=== PATIENT | male | born 1950 | race Caucasian/White ===

== ENCOUNTER → 2021-02-19 10:31 | Outpatient (CLI) | payer OTHER, MEDICARE, SELFPAY | PROVIDERS: PCP Family Medicine; Visit Provider Nurse Practitioner | DX: Z20.822 Contact with and (suspected) exposure to COVID-19 (principal) | CPT/HCPCS: C9803; U0003; U0005 ==

== ENCOUNTER 2022-03-16 13:53 | Emergency (ER) | payer OTHER, MEDICARE, SELFPAY ==
[2022-03-16 15:32] VITALS: BP 168/68; PULSE 90; RESP 20; TEMP 36.8; O2SAT 99; BMI 24.7
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
[2022-03-16 16:44] VITALS: BP 158/89; PULSE 88; RESP 20; TEMP 36.8; O2SAT 98
== END 2022-03-16 16:40 | disposition home or self-care (01) ==
PROVIDERS: Emergency Provider Student in an Organized Health Care Education/Training Program; PCP Nurse Practitioner Family
DX: S46.912A Strain of unspecified muscle, fascia and tendon at shoulder and upper arm level, left arm, initial encounter (principal); V89.2XXA Person injured in unspecified motor-vehicle accident, traffic, initial encounter
CPT/HCPCS: 99283

== ENCOUNTER → 2022-08-29 13:21 | Outpatient (CLI) | payer MEDICARE, SELFPAY | PROVIDERS: PCP Nurse Practitioner Family; Visit Provider Nurse Practitioner Family | DX: R55 Syncope and collapse (principal); I10 Essential (primary) hypertension | CPT/HCPCS: 93306 ==

== ENCOUNTER 2023-07-27 09:43 | Day surgery (SDC) | payer MEDICARE, SELFPAY ==
[2023-07-25 12:32] VITALS: BMI 24.3
[2023-07-27] VITALS (7 sets, daily range): BP systolic 92–180; BP diastolic 50–87; PULSE 79–98; RESP 18; TEMP 36.4–36.8; O2SAT 91–98
[2023-07-27] MEDS: LACTATED RINGERS 1000ML 1,000 ML 25 ML IV (10:04)
--- NOTE | 2023-07-27 10:56 | P.PNANES_ITS ---
[facility] Disclaimer: The information contained in this section may have been updated after the patient was seen, as this information can be updated by other users. Medical History Parkinson disease Hypertension Surgical History No history of previous surgery Family History Other Family history of cancer Social History Smoking Status: Former smoker alcohol intake: never substance use type: denies use current occupational status: employed Travel in the last 8 weeks: None [facility] Anesthesia Checklist Patient Identification Patient Identification: Arm Band and Verbal (Name & ) Structural Data Admitted From: Home Planned Operative Procedure/s: Colonoscopy Consent for Planned Operative Procedure(s) Verified: Yes NPO Status Verified Time NPO: 00:00 Additional verifications Anesthesia Reactions: No Airway Assessment Mallampati Score:: Class III C-Spine Mobility Assessed: Yes TMJ Mobility Assessed: Yes Dentition: Good Dentition Neurological Assessment Level of Consciousness: Awake Hx Seizures: No Numbness or tingling in extremities: No Anesthesia Plan Anesthesia Risk discussed: Yes Anesthesia Plan: Verified ASA Class: III Anesthesia Type: MAC
--- NOTE | 2023-07-27 11:22 | HMH.SCOPE ---
Procedure: Date: 07/27/23 Patient Date of :: 1950 Procedure Performed:: Screening colonoscopy Indications:: Colon cancer screening Performing Provider:: Enrike Kennedy MD Referring Provider:: Georgiana Grissom APRN Sedation:: Propofol Procedure:: After placing the patient in the left lateral decubitus position, the colonoscopy was gently inserted into the rectum and under direct visualization advanced to the cecum which was identified by transillumination in the right lower quadrant, identification of the ileocecal valve, appendiceal orifice, and cecal strap. Color, texture, mucosa, and anatomy of the colon were carefully examined with the scope. Findings:: Anal canal: normal Rectum: normal Sigmoid colon: normal without polyps or inflammatory changes, few diverticuli noted, retained liquid stools, washing and suctioning performed Descending colon: normal without polyps or inflammatory changes, retained liquid stools, washing and suctioning performed Splenic flexure: normal Transverse colon: normal without polyps or inflammatory changes, retained liquid stools, washing and suctioning performed Hepatic flexure: normal Ascending colon: normal without polyps or inflammatory changes Cecum: normal Terminal ileum: not visualized Impression: Overall normal colonoscopy with scattered sigmoid diverticulosis Prep quality fair Recommendations:: Follow up examination in about TEN years or so, sooner if clinically indicated. Complications:: None Estimated blood obtained (mL): 0 Colonoscopy Component Colonoscopy Component Was a colonoscopy performed during today's procedure?: Yes Recommended follow up colonoscopy of at least 10 years?: Yes
== END 2023-07-27 12:36 | disposition home or self-care (01) ==
PROVIDERS: PCP Nurse Practitioner Family; Visit Provider Internal Medicine Gastroenterology
PROC: (CPT G0121; principal; 2023-07-27 11:00)
DX: Z12.11 Encounter for screening for malignant neoplasm of colon (principal); K57.30 Diverticulosis of large intestine without perforation or abscess without bleeding
CPT/HCPCS: G0121

== ENCOUNTER 2024-01-26 13:24 | Outpatient (CLI) | payer MEDICARE, SELFPAY ==
[2024-01-26 13:37] LABS: Microscopic, Urine URINE MICROSCOPIC (MICROSCOPIC)
[2024-01-26 13:54] LABS: Appearance,Urine CLEAR (Clear); Bilirubin,Urine Negative (Negative); Blood, Urine Negative (Negative); Color,Urine YELLOW (Yellow); Glucose,Urine (UA) Negative (Negative); Ketones,Urine TRACE (Negative); Leukocyte Esterase,Urine Negative (Negative); Nitrate,Urine Negative (Negative); Protein,Urine Negative (Negative); Specific Gravity, Urine >= 1.030 (1.005-1.030); Urobilinogen,Urine 0.2 EU/dl (0.2)
[2024-01-26 14:08] LABS: Basophils # 0.1 K/mm3 (0-0.2); Basophils % 0.6 % (0.1-2.0); Eosinophils # 0.1 K/mm3 (0.0-0.4); Eosinophils % 0.9 % (0.1-12.0); Hematocrit 40.7 % (42.0-52.0); Lymphocytes # 1.1 K/mm3 (0.7-4.5); Lymphocytes % 14.7 % (10-50); Mean Corpuscular HGB Conc 34.5 g/dL (31.8-35.4); Mean Corpuscular Hemoglobin 31.2 pg (27.0-31.2); Mean Corpuscular Volume 90.2 fl (80-94); Mean Platelet Volume 7.7 fl (7.4-10.4); Monocytes # 0.6 K/mm3 (0.1-1.0); Monocytes % 8.4 % (1.7-9.3); Neutrophils # 5.4 K/mm3 (1.8-7.8); Neutrophils % 75.4 % (37.0-80.0); Platelet Count 221 K/mm3 (142-424); Red Blood Count 4.51 M/mm3 (4.60-6.20); Red Cell Distribution Width 13.7 % (11.5-17.5); White Blood Count 7.2 K/mm3 (4.8-10.8)
[2024-01-26 14:27] LABS: Alanine Aminotransferase 11 U/L (12-78); Albumin Level 3.9 g/dl (3.5-5.0); Albumin/Globulin Ratio 1.8 (1.1-1.8); Alkaline Phosphatase 72 U/L (38-126); Anion Gap 7.8 mEq/L (5-15); Aspartate Amino Transferase 26 U/L (17-59); Bilirubin,Total 0.7 mg/dl (0.2-1.3); Blood Urea Nitrogen 19 mg/dl (9-20); Calcium 8.9 mg/dl (8.4-10.2); Carbon Dioxide 28 mmol/L (22.0-30.0); Chloride 107 mmol/L (98-107); Estimated Glomerular Filt Rate 83 ml/min (>60); GFR (African American) 101 ML/MIN (>60); Globulin 2.2 g/dL (1.3-3.2); Glucose 123 mg/dl (74-100); Potassium 3.8 mmoL/L (3.5-5.1); Sodium 139 mmol/L (136-145); Total Protein,Serum 6.1 g/dl (6.3-8.2)
[2024-01-26 14:43] LABS: Bacteria,Urine 2+ /lpf; Mucus,Urine 3+ /lpf; Squamous Epithelial Cell,Urine Occasional #/hpf (0-5)
[2024-01-26 14:58] LABS: Thyroid Stimulating Hormone 1.79 uIU/mL (0.465-4.68)
== END 2024-01-26 23:59 | disposition home or self-care (01) ==
LOC: LAB 13:26
PROVIDERS: PCP Internal Medicine Adolescent Medicine; Visit Provider Nurse Practitioner Family
DX: R53.1 Weakness (principal); R41.0 Disorientation, unspecified
CPT/HCPCS: 36415; 80053; 81001; 84443; 85025; 87086

== ENCOUNTER 2024-05-31 13:00 | Outpatient (RCR) | payer MEDICARE, SELFPAY | END 2024-05-31 23:59 | disposition home or self-care (01) | LOC: ST 13:00 | PROVIDERS: PCP Internal Medicine Adolescent Medicine; Visit Provider Physician Assistant | DX: G20.A1 Parkinson's disease without dyskinesia, without mention of fluctuations (principal); R41.89 Other symptoms and signs involving cognitive functions and awareness; R41.0 Disorientation, unspecified | CPT/HCPCS: 92507; 92524 ==

== ENCOUNTER 2024-06-17 08:31 | Outpatient (RCR) | payer MEDICARE, SELFPAY | END 2024-06-17 23:59 | disposition home or self-care (01) | LOC: ST 08:31 | PROVIDERS: PCP Internal Medicine Adolescent Medicine; Visit Provider Physician Assistant | DX: R49.8 Other voice and resonance disorders (principal); R41.89 Other symptoms and signs involving cognitive functions and awareness; G20.A1 Parkinson's disease without dyskinesia, without mention of fluctuations | CPT/HCPCS: 92507 ==

== ENCOUNTER 2024-10-22 12:26 | Emergency (ER) | payer MEDICARE, SELFPAY ==
[2024-10-22] VITALS (8 sets, daily range): BP systolic 120–151; BP diastolic 61–78; PULSE 89–99; RESP 16–18; TEMP 36.6–37.2; O2SAT 95–99; BMI 19.3
--- OUTSIDE RECORDS SUMMARY | 2024-10-22 13:56 | XMS_ITS | Encounter Summary ---
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 Role Phone Carlos Evans MD Primary Care Provider + [phone] Carlos Evans MD Primary Care Provider + [phone] Carlos Evans MD Unavailable [phone] Larry Watkins MD Unavailable [phone] Reason for Visit * Reason Comments Med Refill Encounter Details Date Type Department Care Team (Late st Contact Info) Description 06/01/2024 Refill [place] [facility] [address] [place] [address] Marnie Ferreira, PA [address] [place] [address] Social History Tobacco Use Types Packs/Day Years Used Date Smoking Tobacco: Former Cigarettes 1 12 1 958 - 1969 Smokeless Tobacco: Never Alcohol Use Standard Drinks/Week Comments Yes 0 (1 standard drink = 0.6 oz pur e alcohol) PHQ-2 Answer Date Recorded Patient Health Questionnaire-2 Score 0 03/25/2024 PHQ-9 Answer Date Recorded Patient Health Questionnaire-9 Score 0 03/25/2024 Sex and Gender Information Value Date Recorded Sex Assigned at Not on file Legal Sex Male 7:50 PM EDT Gender Identity Not on file Sexual Orientation Not on file documented as of this encounter Miscellaneous Notes * Telephone Encounter - Marnie Ferreira PA - 06/03/2024 9:34 AM EST sent documented in this encounter Plan of Treatment Not on file documented as of this encounter Visit Diagnoses Not on filedocumented in this encounter Additional Health Concerns Infection Onset Date Last Indicated Resolved Time COVID-19 Rule-Out 07/28/2024 07/28/2024 07/28/2024 2:04 AM EDT Assessment Noted Time PHQ-9 Depression Total Score: 0 03/25/20 2:15 PM EST A fall risk assessment has been complete d for the patient 03/25/2024 2:15 PM EST A Body Mass Index follow-up plan has been documented for the patient 03/25/2024 3:35 PM EST documented as of this encounter Care Teams Cloth Cutting Machine Operator Relationship Specialty Start Date End Date Carlos Evans MD [address] [place] [id number] PCP - General Internal Medicine 08/08/22 07/26/24 Carlos Evans MD [address] [place] [id number] PCP - General Internal Medicine 07/27/24 Carlos Evans MD [address] [place] [id number] Internal Medicine 07/27/24 Larry Watkins MD [address] [place] [address] Consulting Physician Neurology 2/7/22 documented as of this encounter
--- OUTSIDE RECORDS SUMMARY | 2024-10-22 13:56 | XMS_ITS | Clinical Summary ---
Author Organization [facility] Address [address] [place] [id number] Care Team Providers Care Head Of Geography Name Role Phone Carlos Evans MD Primary Care Provider [phone] Carlos Evans MD Unavailable [phone] Larry Watkins MD Unavailable [phone] Allergies No known active allergies Medications atorvastatin (Lipitor) 20 MG tablet Take 1 tablet (20 mg) by mouth daily. 05/06/2021 Active amLODIPine (Norvasc) 2.5 MG tablet Take 1 tablet (2.5 mg) by mouth daily. 02/28/2023 Active Pimavanserin Tartrate (Nuplazid) 34 MG capsule Take 1 capsule (34 mg) by mouth 1 (one) time each day. 90 capsule 3 03/25/2024 5 Active carbidopa-levod opa (Sinemet) 25-100 MG tablet Take 0.5 tablets by mouth 3 (three) times a day. 135 tablet 3 03/26/2024 5 Active QUEtiapine (SEROquel) 25 MG tablet Take 4 tablets (100 mg) by mouth nightly. 360 tablet 3 06/24/2024 6 Active clonazePAM (KlonoPIN) 1 MG tablet Take 1 tablet by mouth nightly. 30 tablet 07/17/2024 Active carbidopa-levod opa CR (Sinemet CR) 50-200 MG ER tablet Take 1 tablet by mouth in the morning and 1 tablet in the evening. Do not crush or chew. 180 tablet 3 07/17/2024 Active Encounters Date Type Department Care Team Description 07/27/2024 7:26 PM EDT - 07/28/2024 4:15 AM EDT Emergency [facility] [address] [place] [address] Ryanne Dacosta, Amrit Arroyo MD Weakness (Primary Dx) Discharge Disposition: Another Health Care Institution Not Defined 07/27/2024 Travel from Last 3 Months Family History Medical History Relation Name Comments Cancer Father Relation Name Status Comments Father Social History Tobacco Use Types Packs/Day Years Used Date Smoking Tobacco: Former Cigarettes 1 12 958 - 1969 Smokeless Tobacco: Never Tobacco Cessation:Counseling Given: Not Answered Alcohol Use Standard Drinks/Week Comments Yes 0 [...] on file Sexual Orientation Not on file Last Filed Vital Signs Vital Sign Reading Time Taken Comments Blood Pressure 121/57 07/28/2024 3:30 AM EDT Pulse 70 07/28/2024 3:30 AM EDT Temperature 36.4 C (97.6 F) 07/28/2024 3:30 AM EDT Respiratory Rate 16 07/28/2024 3:30 AM EDT Oxygen Saturation 98% 07/28/2024 3:30 AM EDT Inhaled Oxygen Concentration - - Weight 54.2 kg (119 lb 7.8 oz) 07/27/2024 8:05 P M EDT Height 177.8 cm (5' 10 ) 06/05/2024 9:25 AM EST Body Mass Index 17.14 06/05/2024 9:25 AM EST Plan of Treatment Health Maintenance Due Date Last Done Comments [facility]-Hepatitis C Screening 1950 [facility]-Medicare Annual Wellness (AWV) 1950 [facility]-/Child/Adol SDOH Screenings 1950 [facility]- SDOH Screenings 1970 [facility]-Adult SDOH Screenings 1970 CT Colonography 1997 Colonoscopy 1997 FIT-DNA 1997 FIT 1997 FOBT 1997 Sigmoidoscopy 1997 [facility]-Colorectal Cancer Screening 1997 [facility]-Zoster Vaccines (1 of 2) 2002 [facility]-Abdominal Aortic Aneurysm (AAA) Screening 2017 [id number] Vaccine (2 - season) 2023 07/11/2020 [facility]-Influenza Vaccine (#1) 12/09/202404/25, 01/30/2023, 01/23/2018, Additional history exists [facility]-Depression Screening 03/25/2025 03/25/2024, 03/10 [facility]-Pneumococcal Vaccine: 50+ Years (2 of 2 - PPSV23) 04/25/2025 04/25/2024 [facility]-DTaP,Tdap,and Td Vaccines (2 - Td or Tdap) 08/04/2026 08/04/2016 [facility]-RSV Vaccine: 60+ Years or (1 - 1-dose 75+ series) 09/23/2027 HPV Vaccines Aged Out No longer eligi ble based on patient's age to complete this topic [facility]-HIB Vaccines Aged Out No longer e ligible based on patient's age to complete this topic [facility]-Hepatitis A Vaccines Aged Out No longer eligible based on patient's age to complete this topic [facility]-IPV Vaccines Aged Out No longer e ligible based on patient's age to complete this topic [facility]-Rotavirus Vaccines Aged Out No lo nger eligible based on patient's age to complete this topic Procedures Procedure Name Priority Date/Time Associated Diagnosis Comments SARS-COV-2, FLU A, FLU B, AND RSV - RAPID STAT 07/28/2024 12:41 AM EDT BENZODIAZEPINE, URINE, QUANTITATIVE STAT 07/27/2024 9:39 PM EDT URINALYSIS MICROSCOPIC FOR UA REFLEX STAT 07/27/2024 9:39 PM EDT URINALYSIS WITH REFLEX MICROSCOPIC STAT 07/27/2024 9:39 PM EDT DRUG ABUSE SCREEN, URINE STAT 07/27/2024 9:39 PM EDT EXTRA TUBE GOLD TOP Routine 07/27/2024 8 :07 PM EDT EXTRA TUBE GOLD TOP Routine 07/27/2024 8 :07 PM EDT EXTRA TUBE LAVENDER TOP Routine 07/27/2024 8:07 PM EDT EXTRA TUBE LAVENDER TOP Routine 07/27/2024 8:07 PM EDT EXTRA TUBES Routine 07/27/2024 8:[address] BONY PELVIS STAT 07/27/2024 8:[address] LUMBAR SPINE WO IV CONTRAST STAT 07/27/2024 8:[address] THORACIC SPINE WO IV CONTRAST STAT 07/27/2024 8:[address] CERVICAL SPINE WO IV CONTRAST STAT 07/27/2024 8:[address] ANGIO ABDOMEN PELVIS STAT 07/27/2024 8:[address] ANGIO CHEST STAT 07/27/2024 8:[address] FACE WO IV CONTRAST STAT 8:[address] ANGIO NECK STAT 07/27/2024 8:[address] HEAD WO IV CONTRAST STAT 8:[address] ANGIO HEAD STAT 07/27/2024 8:00 PM EDT TYPE AND SCREEN STAT 07/27/2024 7:59 PM EDT TEG GLOBAL HEMOSTASIS WITH LYSIS STAT 07/27/2024 7:59 PM EDT ETHYL ALCOHOL PLASMA STAT 07/27/2024 7:59 PM EDT APTT STAT 07/27/2024 7:59 PM EDT PROTHROMBIN TIME(PT) / INR STAT 07/27/2024 7:59 PM EDT CBC W/O DIFFERENTIAL STAT 07/27/2024 7:59 PM EDT COMPREHENSIVE METABOLIC PANEL, PLASMA STAT 07/27/2024 7:59 PM EDT TRAUMA SHOCK PANEL BLOOD GAS STAT 07/27/2024 7:59 PM EDT XR PELVIS 1 OR 2 VIEWS STAT 7:44 PM EDT XR CHEST 1 VIEW STAT 07/27/2024 7:43 PM EDT POCT GLUCOSE METER UNSOLICITED RESULTS Routine 07/27/2024 7:40 PM EDT OXYGEN THERAPY STAT 07/27/2024 7:26 PM EDT OXYGEN THERAPY STAT 07/27/2024 7:26 PM EDT from Last 3 Months Results * SARS-CoV-2, Flu A, Flu B, and RSV - Rapid (07/28/2024 12:41 AM EDT) [facility] SARS CoV-2/COVID-19 RNA PCR Result Not Detected Not Detected 07/28/2024 2:04 AM EDT [facility] Influenza A Virus PCR Result Not Detected Not Detected 07/28/2024 2:04 AM EDT [facility] Influenza B Virus PCR Result Not Detected Not Detected 07/28/2024 2:04 AM EDT [facility] Respiratory Syncytial Virus (RSV) PCR Result Not Detected Not Detected 07/28/2024 2:04 AM EDT [facility] Swab Nasopharyngeal structure / Unknown Non-blood Collection / Unknown 07/28/2024 12:41 AM EDT 07/28/2024 1:14 AM EDT Narrative [facility] - 07/28/2024 2:04 AM EDT This test is FDA approved for use with nasopharyngeal specimens in Viral Transport Media (VTM). This test is used for clinical purposes. It should not be regarded as investigational or for research. This laboratory is certified under the Clinical Laboratory improvement Amendments of 1988 (CLIA-88 as qualified to perform high complexity clinical laboratory testing. This test was performed on the Xpert Xpress SARS CoV-2 Plus assay test, a PCR- based method. Negative results should be considered presumptive and do not preclude current or future infection obtained through community transmission or other exposures. Negative results must be considered in the context of an individual's recent exposures, history, presence of clinical signs and symptoms consistent with COVID-19. Amrit Knight MD LAB MICROBIOLOGY - GENERAL OR DERABLES Final Result Performing Organization Address [facility] Co de Phone Number [facility] [address] [place] [address] * Urinalysis Microscopic Examination (07/27/2024 9:39 PM EDT) Urine Urine specimen obtained by clean catch procedure / Unknown Non-blood Collection / Unknown 07/27/2024 9:39 PM EDT 07/27/2024 9:40 PM EDT Ryanne Dacosta DO LAB URINE ORDERABLES Final Re sult Performing Organization Address [facility]/ZIP Co de Phone Number [facility] [address] [place] [address] * Drug Abuse Screen, Urine (07/27/2024 9:39 PM EDT) Amphetamine Screen Urine Negative Cutoff: 500 ng/mL 07/27/2024 10:16 PM EDT [facility] Benzodiazepines Screen Urine Presumptive positive. Confirmation by LC-MS/MS to follow. Cutoff: 200 ng/mL 07/27/2024 10:16 PM EDT [facility] Cannabinoid Screen Urine Negative Cutoff: 50 ng/mL 07/27/2024 10:16 PM EDT [facility] Cocaine Screen Urine Negative Cutoff: 300 ng/mL 07/27/2024 10:16 PM EDT [facility] Barbiturate Screen Urine Negative Cutoff: 200 ng/mL 07/27/2024 10:16 PM EDT [facility] Opiate Screen Urine Negative Cutoff: 300 ng/mL 07/27/2024 10:16 PM EDT [facility] Methadone Screen Urine Negative Cutoff: 300 ng/mL 07/27/2024 10:16 PM EDT [facility] Buprenorphine Screen Urine Negative Cutoff: 10 ng/mL 07/27/2024 10:16 PM EDT [facility] Fentanyl Screen Urine Negative Cutoff: 1 ng/mL 07/27/2024 10:16 PM EDT [facility] Oxycodone Screen Urine Negative Cutoff: 100 ng/mL 07/27/2024 10:16 PM EDT [facility] Urine Urine specimen obtained by clean catch procedure / Unknown Non-blood Collection / Unknown 07/27/2024 9:39 PM EDT 07/27/2024 9:40 PM EDT us Ryanne Dacosta DO LAB URINE ORDERABLES Final Re sult [facility] [address] [place] [address] * (ABNORMAL) Benzodiazepine Confirm Urine (07/27/2024 9:39 PM EDT) [facility] [place] Alprazolam <20 <20 ng/mL 07/30 6:11 AM EDT [facility] Alpha [place] Midazolam <20 <20 ng/mL 2024 6:11 AM EDT [facility] [place] Triazolam <20 <20 ng/mL 2024 6:11 AM EDT [facility] Alprazolam <10 <10 ng/mL 07/30/2024 6:11 AM EDT [facility] Aminoclonazepam 817(H) <20 ng/mL 6:11 AM EDT [facility] Clonazepam <10 <10 ng/mL 07/30/2024 6:11 AM EDT [facility] Diazepam <10 <10 ng/mL 07/30/2024 6:11 AM EDT [facility] Lorazepam <20 <20 ng/mL 07/30/2024 6:11 AM EDT [facility] Lorazepam Glucuronide <50 <50 ng/mL 07/30/2024 6:11 AM EDT [facility] Midazolam 07/30/2024 6:11 AM EDT [facility] Nordiazepam <20 <20 ng/mL 07/30/2024 6:11 AM EDT [facility] Oxazepam <20 <20 ng/mL 07/30/2024 6:11 AM EDT [facility] Oxazepam Glucuronide <50 <50 ng/mL 07/30/2024 6:11 AM EDT [facility] Temazepam <20 <20 ng/mL 07/30/2024 6:11 AM EDT [facility] Temazepam Glucuronide <50 <50 ng/mL 07/30/2024 6:11 AM EDT [facility] Triazolam 07/30/2024 6:11 AM EDT [facility] Urine Urine specimen obtained by clean catch procedure / Unknown Non-blood Collection / Unknown 07/27/2024 9:39 PM EDT 07/27/2024 9:40 PM EDT Narrative [facility] - 07/30/2024 6:11 AM EDT Drug analysis is confirmed by LC-MS/MS (LC Tandem Mass Spectrometry) on Urine specimens. This test was developed and its performance characteristics determined by [facility]. It has not been cleared or approved by the FDA. The laboratory is regulated under CLIA as qualified to perform high-complexity testing. This test is used for clinical purposes. Testing is performed at the [facility], [facility]. us Ryanne Dacosta DO LAB URINE ORDERABLES Final Re sult [facility] [address] [place] [address] * (ABNORMAL) Urinalysis with reflex microscopic (Culture NOT Included) (07/27/2024 9:39 PM EDT) Color, Urine Yellow LAB URINALYSIS - AUTOMATED METHOD 07/27/2024 10:18 PM EDT [facility] Clarity, Urine Clear LAB URINALYSIS - AUTOMATED METHOD 07/27/2024 10:18 PM EDT [facility] Spec [place], Urine >1.030(H) 1.005 - 1.030 LAB URINALYSIS - AUTOMATED METHOD 07/27/2024 10:18 PM EDT [facility] pH, Urine 6.0 5.0 - 8.0 LAB URINALYSIS - AUTOMATED METHOD 07/27/2024 10:18 PM EDT [facility] Protein, Urine 30(A) Negative mg/dL LAB URINALYSIS - AUTOMATED METHOD 07/27/2024 10:18 PM EDT [facility] Glucose, Urine Negative Negative mg/dL LAB URINALYSIS - AUTOMATED METHOD 07/27/2024 10:18 PM EDT [facility] Ketones, Urine 15(A) Negative mg/dL LAB URINALYSIS - AUTOMATED METHOD 07/27/2024 10:18 PM EDT [facility] Blood, Urine Large(A) Negative LAB URINALYSIS - AUTOMATED METHOD 07/27/2024 10:18 PM EDT [facility] Bilirubin, Urine Negative Negative LAB URINALYSIS - AUTOMATED METHOD 07/27/2024 10:18 PM EDT [facility] Urobilinogen, Urine 1.0 0.2 to 1.0 mg/dL LAB URINALYSIS - AUTOMATED METHOD 07/27/2024 10:18 PM EDT [facility] Leukocytes, Urine Negative Negative LAB URINALYSIS - AUTOMATED METHOD 07/27/2024 10:18 PM EDT [facility] Nitrite, Urine Negative Negative LAB URINALYSIS - AUTOMATED METHOD 07/27/2024 10:18 PM EDT [facility] RBC, Urine >50(A) 0 to 3 /HPF LAB URINALYSIS - AUTOMATED METHOD 07/27/2024 10:18 PM EDT [facility] Comment:This result was prev iously suppressed from the chart. WBC, Urine 0 - 5 0 to 5 /HPF LAB URINALYSIS - AUTOMATED METHOD 07/27/2024 10:18 PM EDT [facility] Comment:This result was prev iously suppressed from the chart. Squamous Epithelial Cells 0 - 2 0 to 5 /HPF LAB URINALYSIS - AUTOMATED METHOD 07/27/2024 10:18 PM EDT [facility] Comment:This result was prev iously suppressed from the chart. Hyaline Casts >20(A) 0 to 5 /LPF LAB URINALYSIS - AUTOMATED METHOD 07/27/2024 10:18 PM EDT [facility] Comment:This result was prev iously suppressed from the chart. Bacteria, Urine Negative Negative LAB URINALYSIS - AUTOMATED METHOD 07/27/2024 10:18 PM EDT [facility] Comment:This result was prev iously suppressed from the chart. Urine Urine specimen obtained by clean catch procedure / Unknown Non-blood Collection / Unknown 07/27/2024 9:39 PM EDT 07/27/2024 9:40 PM EDT [employer] LAB URINE ORDERABLES Final Re sult Performing Organization Address [facility]/ZIP Co de Phone Number [facility] [address] [place] [address] * [facility] (07/27/2024 8:07 PM EDT) Only the most recent of2 resultswithin the time period is included. Extra Hold for add-ons 07/27/2024 11:01 PM EDT [facility] Comment:Auto resulted. Blood Venous blood specimen / Unknown 07/27/2024 8:07 PM EDT 07/27/2024 8:07 PM EDT [employer] LAB BLOOD ORDERABLES Final Re sult Performing Organization Address City/[facility]/ZIP Co de Phone Number [facility] [address] [place] [address] * [employer] (07/27/2024 8:07 PM EDT) Only the most recent of2 resultswithin the time period is included. Extra Hold for add-ons 07/27/2024 11:01 PM EDT [facility] Comment:Auto resulted. Blood Venous blood specimen / Unknown 07/27/2024 8:07 PM EDT 07/27/2024 8:07 PM EDT us Ryanne Dacosta DO LAB BLOOD ORDERABLES Final Re sult [facility] [address] [place] [address] * CT Bony Pelvis (07/27/2024 8:00 PM EDT) Anatomical Region Laterality Modality Pelvis Computed Tomogra phy Impressions 07/27/2024 8:42 PM EDT 1. Vascular structures are unremarkable. 2. No acute findings in the chest, abdomen or pelvis. 3. No pelvic fracture. 4. No acute fracture or malalignment of the cervical, thoracic and lumbar spine. CRITICAL RESULT: No. COMMUNICATION: Per this written report. Drafted by Yen Silverio MD on 07/27/2024 8:23 PM Final report signed by Yen Silverio MD on 07/27/2024 8:42 PM Narrative 07/27/2024 8:42 PM EDT CLINICAL INDICATION: poly trauma CLINICAL INDICATION: poly trauma TECHNIQUE: Imaging of the chest abdomen and pelvis was performed, from chest through pubic symphysis, using spiral technique, following administration of IV contrast, Omnipaque 350, 100 mL according to the CTA Abdomen/Pelvis protocol. Reformatted images in the coronal, sagittal, and oblique planes were generated from the axial data set to facilitate diagnostic accuracy. In addition, 3D images were created and reviewed. Imaging of the entire cervical, thoracic, and lumbar spine was performed, using spiral technique, without contrast administration. Reformatted images in the coronal and sagittal planes were generated from the axial data set to facilitate diagnostic accuracy and/or surgical planning. Images of the bony pelvis were reconstructed from CT angiogram abdomen and pelvis. Reformatted images in the coronal and sagittal planes were generated from the axial data set to facilitate diagnostic accuracy. Total DLP (Dose-Length Product): 4369.36 mGy.cm (accession [id number]), 4369.36 mGy.cm (accession [id number]), 4369.36 mGy.cm (accession [id number]), 4369.36 mGy.cm (accession [id number]), 4369.36 mGy.cm (accession [id number]), 4369.36 mGy.cm (accession [id number]). Please note: The reported value represents the total of one or more individual components during the CT acquisition on this date and at this time, and as such, the same value may appear in more than one CT report depending on the interpreting/reporting physicians. COMPARISON: None. FINDINGS: CTA Chest: Aorta/Vessels: No acute traumatic aortic injury. No periaortic hematoma. Pleural/Pericardial Space: No pneumothorax. No pleural effusions. No pericardial effusion. Lymph Nodes: No lymphadenopathy within the chest. Lungs: Except for minimal dependent atelectasis, the lungs are clear. Mediastinum: Otherwise unremarkable. Chest Wall: No chest wall hematoma or contusion. Bones: No acute fracture within the chest. CTA Abdomen : Vessels: The abdominal aorta and its major branches are unremarkable. Lung Bases: The lung bases are clear. Liver/Gallbladder/Biliary System: The liver demonstrates homogeneous enhancement. Normal Gallbladder. No intra- or extra-hepatic biliary ductal dilatation. Spleen: The spleen enhances homogeneously. Pancreas: The pancreas enhances homogeneously. Adrenals: The adrenals are morphologically unremarkable. Kidneys: The kidneys demonstrate symmetric nephrogram and excretion. No renal or ureteral calculi. No hydronephrosis. Bowel/Mesentery: The small bowel loops are not dilated. The large bowel loops are not dilated. The appendix is visualized and normal. Lymph Nodes: No lymphadenopathy within the abdomen or pelvis. Fluid Survey: No free fluid in the abdomen. No free fluid in the pelvis. Pelvis: The pelvic viscera are unremarkable. Body Wall: Normal. Bones: No acute fracture within the abdomen or pelvis. Cervical Spine: Vertebrae: No acute fracture. Multilevel degenerative changes pronounced at C4- C5 C5-C6. Disc osteophyte complex at C5-C6 without significant canal stenosis. The odontoid and atlantoaxial joints are intact. Prevertebral soft tissues unremarkable. Alignment: Normal spinal alignment. Paraspinal Soft Tissues: No paraspinal hematoma. Lung Apices: No pneumothorax at the lung apices. Thoracic Spine: Vertebrae: No acute fracture. Alignment: Normal spinal alignment. Paraspinal Soft Tissues: No paraspinal hematoma. Lumbar Spine: Vertebrae: No acute fracture. Grade 1 anterolisthesis L4-L5. Alignment: Normal spinal alignment. Paraspinal Soft Tissues: No paraspinal hematoma. Procedure Note Yen Silverio MD - 07/27/2024 CLINICAL INDICATION: poly trauma CLINICAL INDICATION: poly trauma TECHNIQUE: Imaging of the chest abdomen and pelvis was performed, from chest throughpubic symphysis, using spiral technique, following administration of IVcontrast, Omnipaque 350, 100 mL according to the CTA Abdomen/Pelvisprotocol. Reformatted images in the coronal, sagittal, and oblique planeswere generated from the axial data set to facilitate diagnostic accuracy.In addition, 3D images were created and reviewed. Imaging of the entire cervical, thoracic, and lumbar spine was performed,using spiral technique, without contrast administration. Reformattedimages in the coronal and sagittal planes were generated from the axialdata set to facilitate diagnostic accuracy and/or surgical planning. Images of the bony pelvis were reconstructed from CT angiogram abdomen andpelvis. Reformatted images in the coronal and sagittal planes weregenerated from the axial data set to facilitate diagnostic accuracy. Total DLP (Dose-Length Product): 4369.36 mGy.cm (accession [id number]),4369.36 mGy.cm (accession [id number]), 4369.36 mGy.cm (accession [id number]),4369.36 mGy.cm (accession [id number]), 4369.36 mGy.cm (accession [id number]),4369.36 mGy.cm (accession [id number]). Please note: The reported valuerepresents the total of one or more individual components during the CTacquisition on this date and at this time, and as such, the same value mayappear in more than one CT report depending on the interpreting/reportingphysicians. COMPARISON: None. FINDINGS: CTA Chest: Aorta/Vessels: No acute traumatic aortic injury. No periaortic hematoma. Pleural/Pericardial Space: No pneumothorax. No pleural effusions. Nopericardial effusion. Lymph Nodes: No lymphadenopathy within the chest. Lungs: Except for minimal dependent atelectasis, the lungs are clear. Mediastinum: Otherwise unremarkable. Chest Wall: No chest wall hematoma or contusion. Bones: No acute fracture within the chest. CTA Abdomen : Vessels: The abdominal aorta and its major branches are unremarkable. Lung Bases: The lung bases are clear. Liver/Gallbladder/Biliary System: The liver demonstrates homogeneousenhancement. Normal Gallbladder. No intra- or extra-hepatic biliary ductaldilatation. Spleen: The spleen enhances homogeneously. Pancreas: The pancreas enhances homogeneously. Adrenals: The adrenals are morphologically unremarkable. Kidneys: The kidneys demonstrate symmetric nephrogram and excretion. Norenal or ureteral calculi. No hydronephrosis. Bowel/Mesentery: The small bowel loops are not dilated. The large bowelloops are not dilated. The appendix is visualized and normal. Lymph Nodes: No lymphadenopathy within the abdomen or pelvis. Fluid Survey: No free fluid in the abdomen. No free fluid in the pelvis. Pelvis: The pelvic viscera are unremarkable. Body Wall: Normal. Bones: No acute fracture within the abdomen or pelvis. Cervical Spine: Vertebrae: No acute fracture. Multilevel degenerative changes pronouncedat C4-C5 C5-C6. Disc osteophyte complex at C5-C6 without significant canalstenosis. The odontoid and atlantoaxial joints are intact. Prevertebralsoft tissues unremarkable. Alignment: Normal spinal alignment. Paraspinal Soft Tissues: No paraspinal hematoma. Lung Apices: No pneumothorax at the lung apices. Thoracic Spine: Vertebrae: No acute fracture. Alignment: Normal spinal alignment. Paraspinal Soft Tissues: No paraspinal hematoma. Lumbar Spine: Vertebrae: No acute fracture. Grade 1 anterolisthesis L4-L5. Alignment: Normal spinal alignment. Paraspinal Soft Tissues: No paraspinal hematoma. IMPRESSION: 1. Vascular structures are unremarkable. 2. No acute findings in the chest, abdomen or pelvis. 3. No pelvic fracture. 4. No acute fracture or malalignment of the cervical, thoracic and lumbarspine. CRITICAL RESULT: No. COMMUNICATION: Per this written report. Drafted by Yen Silverio MD on 07/27/2024 8:23 PM Final report signed by Yen Silverio MD on 07/27/2024 8:42 PM us Maggie Smith MD IMG CT PROCEDURES Final R esult * CT Angio Abdomen Pelvis (07/27/2024 8:00 PM EDT) Anatomical Region Laterality Modality Abdomen, Pelvis Computed Tomogra phy Impressions 07/27/2024 8:42 PM EDT 1. Vascular structures are unremarkable. 2. No acute findings in the chest, abdomen or pelvis. 3. No pelvic fracture. 4. No acute fracture or malalignment of the cervical, thoracic and lumbar spine. CRITICAL RESULT: No. COMMUNICATION: Per this written report. Drafted by Yen Silverio MD on 07/27/2024 8:23 PM Final report signed by Yen Silverio MD on 07/27/2024 8:42 PM Narrative 07/27/2024 8:42 PM EDT CLINICAL INDICATION: poly trauma CLINICAL INDICATION: poly trauma TECHNIQUE: Imaging of the chest abdomen and pelvis was performed, from chest through pubic symphysis, using spiral technique, following administration of IV contrast, Omnipaque 350, 100 mL according to the CTA Abdomen/Pelvis protocol. Reformatted images in the coronal, sagittal, and oblique planes were generated from the axial data set to facilitate diagnostic accuracy. In addition, 3D images were created and reviewed. Imaging of the entire cervical, thoracic, and lumbar spine was performed, using spiral technique, without contrast administration. Reformatted images in the coronal and sagittal planes were generated from the axial data set to facilitate diagnostic accuracy and/or surgical planning. Images of the bony pelvis were reconstructed from CT angiogram abdomen and pelvis. Reformatted images in the coronal and sagittal planes were generated from the axial data set to facilitate diagnostic accuracy. Total DLP (Dose-Length Product): 4369.36 mGy.cm (accession [id number]), 4369.36 mGy.cm (accession [id number]), 4369.36 mGy.cm (accession [id number]), 4369.36 mGy.cm (accession [id number]), 4369.36 mGy.cm (accession [id number]), 4369.36 mGy.cm (accession [id number]). Please note: The reported value represents the total of one or more individual components during the CT acquisition on this date and at this time, and as such, the same value may appear in more than one CT report depending on the interpreting/reporting physicians. COMPARISON: None. FINDINGS: CTA Chest: Aorta/Vessels: No acute traumatic aortic injury. No periaortic hematoma. Pleural/Pericardial Space: No pneumothorax. No pleural effusions. No pericardial effusion. Lymph Nodes: No lymphadenopathy within the chest. Lungs: Except for minimal dependent atelectasis, the lungs are clear. Mediastinum: Otherwise unremarkable. Chest Wall: No chest wall hematoma or contusion. Bones: No acute fracture within the chest. CTA Abdomen : Vessels: The abdominal aorta and its major branches are unremarkable. Lung Bases: The lung bases are clear. Liver/Gallbladder/Biliary System: The liver demonstrates homogeneous enhancement. Normal Gallbladder. No intra- or extra-hepatic biliary ductal dilatation. Spleen: The spleen enhances homogeneously. Pancreas: The pancreas enhances homogeneously. Adrenals: The adrenals are morphologically unremarkable. Kidneys: The kidneys demonstrate symmetric nephrogram and excretion. No renal or ureteral calculi. No hydronephrosis. Bowel/Mesentery: The small bowel loops are not dilated. The large bowel loops are not dilated. The appendix is visualized and normal. Lymph Nodes: No lymphadenopathy within the abdomen or pelvis. Fluid Survey: No free fluid in the abdomen. No free fluid in the pelvis. Pelvis: The pelvic viscera are unremarkable. Body Wall: Normal. Bones: No acute fracture within the abdomen or pelvis. Cervical Spine: Vertebrae: No acute fracture. Multilevel degenerative changes pronounced at C4- C5 C5-C6. Disc osteophyte complex at C5-C6 without significant canal stenosis. The odontoid and atlantoaxial joints are intact. Prevertebral soft tissues unremarkable. Alignment: Normal spinal alignment. Paraspinal Soft Tissues: No paraspinal hematoma. Lung Apices: No pneumothorax at the lung apices. Thoracic Spine: Vertebrae: No acute fracture. Alignment: Normal spinal alignment. Paraspinal Soft Tissues: No paraspinal hematoma. Lumbar Spine: Vertebrae: No acute fracture. Grade 1 anterolisthesis L4-L5. Alignment: Normal spinal alignment. Paraspinal Soft Tissues: No paraspinal hematoma. Procedure Note Yen Silverio MD - 07/27/2024 CLINICAL INDICATION: poly trauma CLINICAL INDICATION: poly trauma TECHNIQUE: Imaging of the chest abdomen and pelvis was performed, from chest throughpubic symphysis, using spiral technique, following administration of IVcontrast, Omnipaque 350, 100 mL according to the CTA Abdomen/Pelvisprotocol. Reformatted images in the coronal, sagittal, and oblique planeswere generated from the axial data set to facilitate diagnostic accuracy.In addition, 3D images were created and reviewed. Imaging of the entire cervical, thoracic, and lumbar spine was performed,using spiral technique, without contrast administration. Reformattedimages in the coronal and sagittal planes were generated from the axialdata set to facilitate diagnostic accuracy and/or surgical planning. Images of the bony pelvis were reconstructed from CT angiogram abdomen andpelvis. Reformatted images in the coronal and sagittal planes weregenerated from the axial data set to facilitate diagnostic accuracy. Total DLP (Dose-Length Product): 4369.36 mGy.cm (accession [id number]),4369.36 mGy.cm (accession [id number]), 4369.36 mGy.cm (accession [id number]),4369.36 mGy.cm (accession [id number]), 4369.36 mGy.cm (accession [id number]),4369.36 mGy.cm (accession [id number]). Please note: The reported valuerepresents the total of one or more individual components during the CTacquisition on this date and at this time, and as such, the same value mayappear in more than one CT report depending on the interpreting/reportingphysicians. COMPARISON: None. FINDINGS: CTA Chest: Aorta/Vessels: No acute traumatic aortic injury. No periaortic hematoma. Pleural/Pericardial Space: No pneumothorax. No pleural effusions. Nopericardial effusion. Lymph Nodes: No lymphadenopathy within the chest. Lungs: Except for minimal dependent atelectasis, the lungs are clear. Mediastinum: Otherwise unremarkable. Chest Wall: No chest wall hematoma or contusion. Bones: No acute fracture within the chest. CTA Abdomen : Vessels: The abdominal aorta and its major branches are unremarkable. Lung Bases: The lung bases are clear. Liver/Gallbladder/Biliary System: The liver demonstrates homogeneousenhancement. Normal Gallbladder. No intra- or extra-hepatic biliary ductaldilatation. Spleen: The spleen enhances homogeneously. Pancreas: The pancreas enhances homogeneously. Adrenals: The adrenals are morphologically unremarkable. Kidneys: The kidneys demonstrate symmetric nephrogram and excretion. Norenal or ureteral calculi. No hydronephrosis. Bowel/Mesentery: The small bowel loops are not dilated. The large bowelloops are not dilated. The appendix is visualized and normal. Lymph Nodes: No lymphadenopathy within the abdomen or pelvis. Fluid Survey: No free fluid in the abdomen. No free fluid in the pelvis. Pelvis: The pelvic viscera are unremarkable. Body Wall: Normal. Bones: No acute fracture within the abdomen or pelvis. Cervical Spine: Vertebrae: No acute fracture. Multilevel degenerative changes pronouncedat C4-C5 C5-C6. Disc osteophyte complex at C5-C6 without significant canalstenosis. The odontoid and atlantoaxial joints are intact. Prevertebralsoft tissues unremarkable. Alignment: Normal spinal alignment. Paraspinal Soft Tissues: No paraspinal hematoma. Lung Apices: No pneumothorax at the lung apices. Thoracic Spine: Vertebrae: No acute fracture. Alignment: Normal spinal alignment. Paraspinal Soft Tissues: No paraspinal hematoma. Lumbar Spine: Vertebrae: No acute fracture. Grade 1 anterolisthesis L4-L5. Alignment: Normal spinal alignment. Paraspinal Soft Tissues: No paraspinal hematoma. IMPRESSION: 1. Vascular structures are unremarkable. 2. No acute findings in the chest, abdomen or pelvis. 3. No pelvic fracture. 4. No acute fracture or malalignment of the cervical, thoracic and lumbarspine. CRITICAL RESULT: No. COMMUNICATION: Per this written report. Drafted by Yen Silverio MD on 07/27/2024 8:23 PM Final report signed by Yen Silverio MD on 07/27/2024 8:42 PM us Maggie Smith MD IMG CT PROCEDURES Final R esult * CT Lumbar Spine wo IV Contrast (07/27/2024 8:00 PM EDT) Anatomical Region Laterality Modality Spine, L-spine Computed Tomogra phy Impressions 07/27/2024 8:42 PM EDT 1. Vascular structures are unremarkable. 2. No acute findings in the chest, abdomen or pelvis. 3. No pelvic fracture. 4. No acute fracture or malalignment of the cervical, thoracic and lumbar spine. CRITICAL RESULT: No. COMMUNICATION: Per this written report. Drafted by Yen Silverio MD on 07/27/2024 8:23 PM Final report signed by Yen Silverio MD on 07/27/2024 8:42 PM Narrative 07/27/2024 8:42 PM EDT CLINICAL INDICATION: poly trauma CLINICAL INDICATION: poly trauma TECHNIQUE: Imaging of the chest abdomen and pelvis was performed, from chest through pubic symphysis, using spiral technique, following administration of IV contrast, Omnipaque 350, 100 mL according to the CTA Abdomen/Pelvis protocol. Reformatted images in the coronal, sagittal, and oblique planes were generated from the axial data set to facilitate diagnostic accuracy. In addition, 3D images were created and reviewed. Imaging of the entire cervical, thoracic, and lumbar spine was performed, using spiral technique, without contrast administration. Reformatted images in the coronal and sagittal planes were generated from the axial data set to facilitate diagnostic accuracy and/or surgical planning. Images of the bony pelvis were reconstructed from CT angiogram abdomen and pelvis. Reformatted images in the coronal and sagittal planes were generated from the axial data set to facilitate diagnostic accuracy. Total DLP (Dose-Length Product): 4369.36 mGy.cm (accession [id number]), 4369.36 mGy.cm (accession [id number]), 4369.36 mGy.cm (accession [id number]), 4369.36 mGy.cm (accession [id number]), 4369.36 mGy.cm (accession [id number]), 4369.36 mGy.cm (accession [id number]). Please note: The reported value represents the total of one or more individual components during the CT acquisition on this date and at this time, and as such, the same value may appear in more than one CT report depending on the interpreting/reporting physicians. COMPARISON: None. FINDINGS: CTA Chest: Aorta/Vessels: No acute traumatic aortic injury. No periaortic hematoma. Pleural/Pericardial Space: No pneumothorax. No pleural effusions. No pericardial effusion. Lymph Nodes: No lymphadenopathy within the chest. Lungs: Except for minimal dependent atelectasis, the lungs are clear. Mediastinum: Otherwise unremarkable. Chest Wall: No chest wall hematoma or contusion. Bones: No acute fracture within the chest. CTA Abdomen : Vessels: The abdominal aorta and its major branches are unremarkable. Lung Bases: The lung bases are clear. Liver/Gallbladder/Biliary System: The liver demonstrates homogeneous enhancement. Normal Gallbladder. No intra- or extra-hepatic biliary ductal dilatation. Spleen: The spleen enhances homogeneously. Pancreas: The pancreas enhances homogeneously. Adrenals: The adrenals are morphologically unremarkable. Kidneys: The kidneys demonstrate symmetric nephrogram and excretion. No renal or ureteral calculi. No hydronephrosis. Bowel/Mesentery: The small bowel loops are not dilated. The large bowel loops are not dilated. The appendix is visualized and normal. Lymph Nodes: No lymphadenopathy within the abdomen or pelvis. Fluid Survey: No free fluid in the abdomen. No free fluid in the pelvis. Pelvis: The pelvic viscera are unremarkable. Body Wall: Normal. Bones: No acute fracture within the abdomen or pelvis. Cervical Spine: Vertebrae: No acute fracture. Multilevel degenerative changes pronounced at C4- C5 C5-C6. Disc osteophyte complex at C5-C6 without significant canal stenosis. The odontoid and atlantoaxial joints are intact. Prevertebral soft tissues unremarkable. Alignment: Normal spinal alignment. Paraspinal Soft Tissues: No paraspinal hematoma. Lung Apices: No pneumothorax at the lung apices. Thoracic Spine: Vertebrae: No acute fracture. Alignment: Normal spinal alignment. Paraspinal Soft Tissues: No paraspinal hematoma. Lumbar Spine: Vertebrae: No acute fracture. Grade 1 anterolisthesis L4-L5. Alignment: Normal spinal alignment. Paraspinal Soft Tissues: No paraspinal hematoma. Procedure Note Yen Silverio MD - 07/27/2024 CLINICAL INDICATION: poly trauma CLINICAL INDICATION: poly trauma TECHNIQUE: Imaging of the chest abdomen and pelvis was performed, from chest throughpubic symphysis, using spiral technique, following administration of IVcontrast, Omnipaque 350, 100 mL according to the CTA Abdomen/Pelvisprotocol. Reformatted images in the coronal, sagittal, and oblique planeswere generated from the axial data set to facilitate diagnostic accuracy.In addition, 3D images were created and reviewed. Imaging of the entire cervical, thoracic, and lumbar spine was performed,using spiral technique, without contrast administration. Reformattedimages in the coronal and sagittal planes were generated from the axialdata set to facilitate diagnostic accuracy and/or surgical planning. Images of the bony pelvis were reconstructed from CT angiogram abdomen andpelvis. Reformatted images in the coronal and sagittal planes weregenerated from the axial data set to facilitate diagnostic accuracy. Total DLP (Dose-Length Product): 4369.36 mGy.cm (accession [id number]),4369.36 mGy.cm (accession [id number]), 4369.36 mGy.cm (accession [id number]),4369.36 mGy.cm (accession [id number]), 4369.36 mGy.cm (accession [id number]),4369.36 mGy.cm (accession [id number]). Please note: The reported valuerepresents the total of one or more individual components during the CTacquisition on this date and at this time, and as such, the same value mayappear in more than one CT report depending on the interpreting/reportingphysicians. COMPARISON: None. FINDINGS: CTA Chest: Aorta/Vessels: No acute traumatic aortic injury. No periaortic hematoma. Pleural/Pericardial Space: No pneumothorax. No pleural effusions. Nopericardial effusion. Lymph Nodes: No lymphadenopathy within the chest. Lungs: Except for minimal dependent atelectasis, the lungs are clear. Mediastinum: Otherwise unremarkable. Chest Wall: No chest wall hematoma or contusion. Bones: No acute fracture within the chest. CTA Abdomen : Vessels: The abdominal aorta and its major branches are unremarkable. Lung Bases: The lung bases are clear. Liver/Gallbladder/Biliary System: The liver demonstrates homogeneousenhancement. Normal Gallbladder. No intra- or extra-hepatic biliary ductaldilatation. Spleen: The spleen enhances homogeneously. Pancreas: The pancreas enhances homogeneously. Adrenals: The adrenals are morphologically unremarkable. Kidneys: The kidneys demonstrate symmetric nephrogram and excretion. Norenal or ureteral calculi. No hydronephrosis. Bowel/Mesentery: The small bowel loops are not dilated. The large bowelloops are not dilated. The appendix is visualized and normal. Lymph Nodes: No lymphadenopathy within the abdomen or pelvis. Fluid Survey: No free fluid in the abdomen. No free fluid in the pelvis. Pelvis: The pelvic viscera are unremarkable. Body Wall: Normal. Bones: No acute fracture within the abdomen or pelvis. Cervical Spine: Vertebrae: No acute fracture. Multilevel degenerative changes pronouncedat C4-C5 C5-C6. Disc osteophyte complex at C5-C6 without significant canalstenosis. The odontoid and atlantoaxial joints are intact. Prevertebralsoft tissues unremarkable. Alignment: Normal spinal alignment. Paraspinal Soft Tissues: No paraspinal hematoma. Lung Apices: No pneumothorax at the lung apices. Thoracic Spine: Vertebrae: No acute fracture. Alignment: Normal spinal alignment. Paraspinal Soft Tissues: No paraspinal hematoma. Lumbar Spine: Vertebrae: No acute fracture. Grade 1 anterolisthesis L4-L5. Alignment: Normal spinal alignment. Paraspinal Soft Tissues: No paraspinal hematoma. IMPRESSION: 1. Vascular structures are unremarkable. 2. No acute findings in the chest, abdomen or pelvis. 3. No pelvic fracture. 4. No acute fracture or malalignment of the cervical, thoracic and lumbarspine. CRITICAL RESULT: No. COMMUNICATION: Per this written report. Drafted by Yen Silverio MD on 07/27/2024 8:23 PM Final report signed by Yen Silverio MD on 07/27/2024 8:42 PM Maggie Smith MD IMG CT PROCEDURES Final R esult * CT Thoracic Spine wo IV Contrast (07/27/2024 8:00 PM EDT) Anatomical Region Laterality Modality Spine, T-spine Computed Tomogra phy Impressions 07/27/2024 8:42 PM EDT 1. Vascular structures are unremarkable. 2. No acute findings in the chest, abdomen or pelvis. 3. No pelvic fracture. 4. No acute fracture or malalignment of the cervical, thoracic and lumbar spine. CRITICAL RESULT: No. COMMUNICATION: Per this written report. Drafted by Yen Silverio MD on 07/27/2024 8:23 PM Final report signed by Yen Silverio MD on 07/27/2024 8:42 PM Narrative 07/27/2024 8:42 PM EDT CLINICAL INDICATION: poly trauma CLINICAL INDICATION: poly trauma TECHNIQUE: Imaging of the chest abdomen and pelvis was performed, from chest through pubic symphysis, using spiral technique, following administration of IV contrast, Omnipaque 350, 100 mL according to the CTA Abdomen/Pelvis protocol. Reformatted images in the coronal, sagittal, and oblique planes were generated from the axial data set to facilitate diagnostic accuracy. In addition, 3D images were created and reviewed. Imaging of the entire cervical, thoracic, and lumbar spine was performed, using spiral technique, without contrast administration. Reformatted images in the coronal and sagittal planes were generated from the axial data set to facilitate diagnostic accuracy and/or surgical planning. Images of the bony pelvis were reconstructed from CT angiogram abdomen and pelvis. Reformatted images in the coronal and sagittal planes were generated from the axial data set to facilitate diagnostic accuracy. Total DLP (Dose-Length Product): 4369.36 mGy.cm (accession [id number]), 4369.36 mGy.cm (accession [id number]), 4369.36 mGy.cm (accession [id number]), 4369.36 mGy.cm (accession [id number]), 4369.36 mGy.cm (accession [id number]), 4369.36 mGy.cm (accession [id number]). Please note: The reported value represents the total of one or more individual components during the CT acquisition on this date and at this time, and as such, the same value may appear in more than one CT report depending on the interpreting/reporting physicians. COMPARISON: None. FINDINGS: CTA Chest: Aorta/Vessels: No acute traumatic aortic injury. No periaortic hematoma. Pleural/Pericardial Space: No pneumothorax. No pleural effusions. No pericardial effusion. Lymph Nodes: No lymphadenopathy within the chest. Lungs: Except for minimal dependent atelectasis, the lungs are clear. Mediastinum: Otherwise unremarkable. Chest Wall: No chest wall hematoma or contusion. Bones: No acute fracture within the chest. CTA Abdomen : Vessels: The abdominal aorta and its major branches are unremarkable. Lung Bases: The lung bases are clear. Liver/Gallbladder/Biliary System: The liver demonstrates homogeneous enhancement. Normal Gallbladder. No intra- or extra-hepatic biliary ductal dilatation. Spleen: The spleen enhances homogeneously. Pancreas: The pancreas enhances homogeneously. Adrenals: The adrenals are morphologically unremarkable. Kidneys: The kidneys demonstrate symmetric nephrogram and excretion. No renal or ureteral calculi. No hydronephrosis. Bowel/Mesentery: The small bowel loops are not dilated. The large bowel loops are not dilated. The appendix is visualized and normal. Lymph Nodes: No lymphadenopathy within the abdomen or pelvis. Fluid Survey: No free fluid in the abdomen. No free fluid in the pelvis. Pelvis: The pelvic viscera are unremarkable. Body Wall: Normal. Bones: No acute fracture within the abdomen or pelvis. Cervical Spine: Vertebrae: No acute fracture. Multilevel degenerative changes pronounced at C4- C5 C5-C6. Disc osteophyte complex at C5-C6 without significant canal stenosis. The odontoid and atlantoaxial joints are intact. Prevertebral soft tissues unremarkable. Alignment: Normal spinal alignment. Paraspinal Soft Tissues: No paraspinal hematoma. Lung Apices: No pneumothorax at the lung apices. Thoracic Spine: Vertebrae: No acute fracture. Alignment: Normal spinal alignment. Paraspinal Soft Tissues: No paraspinal hematoma. Lumbar Spine: Vertebrae: No acute fracture. Grade 1 anterolisthesis L4-L5. Alignment: Normal spinal alignment. Paraspinal Soft Tissues: No paraspinal hematoma. Procedure Note Yen Silverio MD - 07/27/2024 CLINICAL INDICATION: poly trauma CLINICAL INDICATION: poly trauma TECHNIQUE: Imaging of the chest abdomen and pelvis was performed, from chest throughpubic symphysis, using spiral technique, following administration of IVcontrast, Omnipaque 350, 100 mL according to the CTA Abdomen/Pelvisprotocol. Reformatted images in the coronal, sagittal, and oblique planeswere generated from the axial data set to facilitate diagnostic accuracy.In addition, 3D images were created and reviewed. Imaging of the entire cervical, thoracic, and lumbar spine was performed,using spiral technique, without contrast administration. Reformattedimages in the coronal and sagittal planes were generated from the axialdata set to facilitate diagnostic accuracy and/or surgical planning. Images of the bony pelvis were reconstructed from CT angiogram abdomen andpelvis. Reformatted images in the coronal and sagittal planes weregenerated from the axial data set to facilitate diagnostic accuracy. Total DLP (Dose-Length Product): 4369.36 mGy.cm (accession [id number]),4369.36 mGy.cm (accession [id number]), 4369.36 mGy.cm (accession [id number]),4369.36 mGy.cm (accession [id number]), 4369.36 mGy.cm (accession [id number]),4369.36 mGy.cm (accession [id number]). Please note: The reported valuerepresents the total of one or more individual components during the CTacquisition on this date and at this time, and as such, the same value mayappear in more than one CT report depending on the interpreting/reportingphysicians. COMPARISON: None. FINDINGS: CTA Chest: Aorta/Vessels: No acute traumatic aortic injury. No periaortic hematoma. Pleural/Pericardial Space: No pneumothorax. No pleural effusions. Nopericardial effusion. Lymph Nodes: No lymphadenopathy within the chest. Lungs: Except for minimal dependent atelectasis, the lungs are clear. Mediastinum: Otherwise unremarkable. Chest Wall: No chest wall hematoma or contusion. Bones: No acute fracture within the chest. CTA Abdomen : Vessels: The abdominal aorta and its major branches are unremarkable. Lung Bases: The lung bases are clear. Liver/Gallbladder/Biliary System: The liver demonstrates homogeneousenhancement. Normal Gallbladder. No intra- or extra-hepatic biliary ductaldilatation. Spleen: The spleen enhances homogeneously. Pancreas: The pancreas enhances homogeneously. Adrenals: The adrenals are morphologically unremarkable. Kidneys: The kidneys demonstrate symmetric nephrogram and excretion. Norenal or ureteral calculi. No hydronephrosis. Bowel/Mesentery: The small bowel loops are not dilated. The large bowelloops are not dilated. The appendix is visualized and normal. Lymph Nodes: No lymphadenopathy within the abdomen or pelvis. Fluid Survey: No free fluid in the abdomen. No free fluid in the pelvis. Pelvis: The pelvic viscera are unremarkable. Body Wall: Normal. Bones: No acute fracture within the abdomen or pelvis. Cervical Spine: Vertebrae: No acute fracture. Multilevel degenerative changes pronouncedat C4-C5 C5-C6. Disc osteophyte complex at C5-C6 without significant canalstenosis. The odontoid and atlantoaxial joints are intact. Prevertebralsoft tissues unremarkable. Alignment: Normal spinal alignment. Paraspinal Soft Tissues: No paraspinal hematoma. Lung Apices: No pneumothorax at the lung apices. Thoracic Spine: Vertebrae: No acute fracture. Alignment: Normal spinal alignment. Paraspinal Soft Tissues: No paraspinal hematoma. Lumbar Spine: Vertebrae: No acute fracture. Grade 1 anterolisthesis L4-L5. Alignment: Normal spinal alignment. Paraspinal Soft Tissues: No paraspinal hematoma. IMPRESSION: 1. Vascular structures are unremarkable. 2. No acute findings in the chest, abdomen or pelvis. 3. No pelvic fracture. 4. No acute fracture or malalignment of the cervical, thoracic and lumbarspine. CRITICAL RESULT: No. COMMUNICATION: Per this written report. Drafted by Yen Silverio MD on 07/27/2024 8:23 PM Final report signed by Yen Silverio MD on 07/27/2024 8:42 PM us Maggie Smith MD IMG CT PROCEDURES Final R esult * CT Cervical Spine wo IV Contrast (07/27/2024 8:00 PM EDT) Anatomical Region Laterality Modality Spine, C-spine Computed Tomogra phy Impressions 07/27/2024 8:42 PM EDT 1. Vascular structures are unremarkable. 2. No acute findings in the chest, abdomen or pelvis. 3. No pelvic fracture. 4. No acute fracture or malalignment of the cervical, thoracic and lumbar spine. CRITICAL RESULT: No. COMMUNICATION: Per this written report. Drafted by Yen Silverio MD on 07/27/2024 8:23 PM Final report signed by Yen Silverio MD on 07/27/2024 8:42 PM Narrative 07/27/2024 8:42 PM EDT CLINICAL INDICATION: poly trauma CLINICAL INDICATION: poly trauma TECHNIQUE: Imaging of the chest abdomen and pelvis was performed, from chest through pubic symphysis, using spiral technique, following administration of IV contrast, Omnipaque 350, 100 mL according to the CTA Abdomen/Pelvis protocol. Reformatted images in the coronal, sagittal, and oblique planes were generated from the axial data set to facilitate diagnostic accuracy. In addition, 3D images were created and reviewed. Imaging of the entire cervical, thoracic, and lumbar spine was performed, using spiral technique, without contrast administration. Reformatted images in the coronal and sagittal planes were generated from the axial data set to facilitate diagnostic accuracy and/or surgical planning. Images of the bony pelvis were reconstructed from CT angiogram abdomen and pelvis. Reformatted images in the coronal and sagittal planes were generated from the axial data set to facilitate diagnostic accuracy. Total DLP (Dose-Length Product): 4369.36 mGy.cm (accession [id number]), 4369.36 mGy.cm (accession [id number]), 4369.36 mGy.cm (accession [id number]), 4369.36 mGy.cm (accession [id number]), 4369.36 mGy.cm (accession [id number]), 4369.36 mGy.cm (accession [id number]). Please note: The reported value represents the total of one or more individual components during the CT acquisition on this date and at this time, and as such, the same value may appear in more than one CT report depending on the interpreting/reporting physicians. COMPARISON: None. FINDINGS: CTA Chest: Aorta/Vessels: No acute traumatic aortic injury. No periaortic hematoma. Pleural/Pericardial Space: No pneumothorax. No pleural effusions. No pericardial effusion. Lymph Nodes: No lymphadenopathy within the chest. Lungs: Except for minimal dependent atelectasis, the lungs are clear. Mediastinum: Otherwise unremarkable. Chest Wall: No chest wall hematoma or contusion. Bones: No acute fracture within the chest. CTA Abdomen : Vessels: The abdominal aorta and its major branches are unremarkable. Lung Bases: The lung bases are clear. Liver/Gallbladder/Biliary System: The liver demonstrates homogeneous enhancement. Normal Gallbladder. No intra- or extra-hepatic biliary ductal dilatation. Spleen: The spleen enhances homogeneously. Pancreas: The pancreas enhances homogeneously. Adrenals: The adrenals are morphologically unremarkable. Kidneys: The kidneys demonstrate symmetric nephrogram and excretion. No renal or ureteral calculi. No hydronephrosis. Bowel/Mesentery: The small bowel loops are not dilated. The large bowel loops are not dilated. The appendix is visualized and normal. Lymph Nodes: No lymphadenopathy within the abdomen or pelvis. Fluid Survey: No free fluid in the abdomen. No free fluid in the pelvis. Pelvis: The pelvic viscera are unremarkable. Body Wall: Normal. Bones: No acute fracture within the abdomen or pelvis. Cervical Spine: Vertebrae: No acute fracture. Multilevel degenerative changes pronounced at C4- C5 C5-C6. Disc osteophyte complex at C5-C6 without significant canal stenosis. The odontoid and atlantoaxial joints are intact. Prevertebral soft tissues unremarkable. Alignment: Normal spinal alignment. Paraspinal Soft Tissues: No paraspinal hematoma. Lung Apices: No pneumothorax at the lung apices. Thoracic Spine: Vertebrae: No acute fracture. Alignment: Normal spinal alignment. Paraspinal Soft Tissues: No paraspinal hematoma. Lumbar Spine: Vertebrae: No acute fracture. Grade 1 anterolisthesis L4-L5. Alignment: Normal spinal alignment. Paraspinal Soft Tissues: No paraspinal hematoma. Procedure Note Yen Silverio MD - 07/27/2024 CLINICAL INDICATION: poly trauma CLINICAL INDICATION: poly trauma TECHNIQUE: Imaging of the chest abdomen and pelvis was performed, from chest throughpubic symphysis, using spiral technique, following administration of IVcontrast, Omnipaque 350, 100 mL according to the CTA Abdomen/Pelvisprotocol. Reformatted images in the coronal, sagittal, and oblique planeswere generated from the axial data set to facilitate diagnostic accuracy.In addition, 3D images were created and reviewed. Imaging of the entire cervical, thoracic, and lumbar spine was performed,using spiral technique, without contrast administration. Reformattedimages in the coronal and sagittal planes were generated from the axialdata set to facilitate diagnostic accuracy and/or surgical planning. Images of the bony pelvis were reconstructed from CT angiogram abdomen andpelvis. Reformatted images in the coronal and sagittal planes weregenerated from the axial data set to facilitate diagnostic accuracy. Total DLP (Dose-Length Product): 4369.36 mGy.cm (accession [id number]),4369.36 mGy.cm (accession [id number]), 4369.36 mGy.cm (accession [id number]),4369.36 mGy.cm (accession [id number]), 4369.36 mGy.cm (accession [id number]),4369.36 mGy.cm (accession [id number]). Please note: The reported valuerepresents the total of one or more individual components during the CTacquisition on this date and at this time, and as such, the same value mayappear in more than one CT report depending on the interpreting/reportingphysicians. COMPARISON: None. FINDINGS: CTA Chest: Aorta/Vessels: No acute traumatic aortic injury. No periaortic hematoma. Pleural/Pericardial Space: No pneumothorax. No pleural effusions. Nopericardial effusion. Lymph Nodes: No lymphadenopathy within the chest. Lungs: Except for minimal dependent atelectasis, the lungs are clear. Mediastinum: Otherwise unremarkable. Chest Wall: No chest wall hematoma or contusion. Bones: No acute fracture within the chest. CTA Abdomen : Vessels: The abdominal aorta and its major branches are unremarkable. Lung Bases: The lung bases are clear. Liver/Gallbladder/Biliary System: The liver demonstrates homogeneousenhancement. Normal Gallbladder. No intra- or extra-hepatic biliary ductaldilatation. Spleen: The spleen enhances homogeneously. Pancreas: The pancreas enhances homogeneously. Adrenals: The adrenals are morphologically unremarkable. Kidneys: The kidneys demonstrate symmetric nephrogram and excretion. Norenal or ureteral calculi. No hydronephrosis. Bowel/Mesentery: The small bowel loops are not dilated. The large bowelloops are not dilated. The appendix is visualized and normal. Lymph Nodes: No lymphadenopathy within the abdomen or pelvis. Fluid Survey: No free fluid in the abdomen. No free fluid in the pelvis. Pelvis: The pelvic viscera are unremarkable. Body Wall: Normal. Bones: No acute fracture within the abdomen or pelvis. Cervical Spine: Vertebrae: No acute fracture. Multilevel degenerative changes pronouncedat C4-C5 C5-C6. Disc osteophyte complex at C5-C6 without significant canalstenosis. The odontoid and atlantoaxial joints are intact. Prevertebralsoft tissues unremarkable. Alignment: Normal spinal alignment. Paraspinal Soft Tissues: No paraspinal hematoma. Lung Apices: No pneumothorax at the lung apices. Thoracic Spine: Vertebrae: No acute fracture. Alignment: Normal spinal alignment. Paraspinal Soft Tissues: No paraspinal hematoma. Lumbar Spine: Vertebrae: No acute fracture. Grade 1 anterolisthesis L4-L5. Alignment: Normal spinal alignment. Paraspinal Soft Tissues: No paraspinal hematoma. IMPRESSION: 1. Vascular structures are unremarkable. 2. No acute findings in the chest, abdomen or pelvis. 3. No pelvic fracture. 4. No acute fracture or malalignment of the cervical, thoracic and lumbarspine. CRITICAL RESULT: No. COMMUNICATION: Per this written report. Drafted by Yen Silverio MD on 07/27/2024 8:23 PM Final report signed by Yen Silverio MD on 07/27/2024 8:42 PM Maggie Smith MD IMG CT PROCEDURES Final R esult * CT Angio Chest (07/27/2024 8:00 PM EDT) Anatomical Region Laterality Modality Chest Computed Tomogra phy Impressions 07/27/2024 8:42 PM EDT 1. Vascular structures are unremarkable. 2. No acute findings in the chest, abdomen or pelvis. 3. No pelvic fracture. 4. No acute fracture or malalignment of the cervical, thoracic and lumbar spine. CRITICAL RESULT: No. COMMUNICATION: Per this written report. Drafted by Yen Silverio MD on 07/27/2024 8:23 PM Final report signed by Yen Silverio MD on 07/27/2024 8:42 PM Narrative 07/27/2024 8:42 PM EDT CLINICAL INDICATION: poly trauma CLINICAL INDICATION: poly trauma TECHNIQUE: Imaging of the chest abdomen and pelvis was performed, from chest through pubic symphysis, using spiral technique, following administration of IV contrast, Omnipaque 350, 100 mL according to the CTA Abdomen/Pelvis protocol. Reformatted images in the coronal, sagittal, and oblique planes were generated from the axial data set to facilitate diagnostic accuracy. In addition, 3D images were created and reviewed. Imaging of the entire cervical, thoracic, and lumbar spine was performed, using spiral technique, without contrast administration. Reformatted images in the coronal and sagittal planes were generated from the axial data set to facilitate diagnostic accuracy and/or surgical planning. Images of the bony pelvis were reconstructed from CT angiogram abdomen and pelvis. Reformatted images in the coronal and sagittal planes were generated from the axial data set to facilitate diagnostic accuracy. Total DLP (Dose-Length Product): 4369.36 mGy.cm (accession [id number]), 4369.36 mGy.cm (accession [id number]), 4369.36 mGy.cm (accession [id number]), 4369.36 mGy.cm (accession [id number]), 4369.36 mGy.cm (accession [id number]), 4369.36 mGy.cm (accession [id number]). Please note: The reported value represents the total of one or more individual components during the CT acquisition on this date and at this time, and as such, the same value may appear in more than one CT report depending on the interpreting/reporting physicians. COMPARISON: None. FINDINGS: CTA Chest: Aorta/Vessels: No acute traumatic aortic injury. No periaortic hematoma. Pleural/Pericardial Space: No pneumothorax. No pleural effusions. No pericardial effusion. Lymph Nodes: No lymphadenopathy within the chest. Lungs: Except for minimal dependent atelectasis, the lungs are clear. Mediastinum: Otherwise unremarkable. Chest Wall: No chest wall hematoma or contusion. Bones: No acute fracture within the chest. CTA Abdomen : Vessels: The abdominal aorta and its major branches are unremarkable. Lung Bases: The lung bases are clear. Liver/Gallbladder/Biliary System: The liver demonstrates homogeneous enhancement. Normal Gallbladder. No intra- or extra-hepatic biliary ductal dilatation. Spleen: The spleen enhances homogeneously. Pancreas: The pancreas enhances homogeneously. Adrenals: The adrenals are morphologically unremarkable. Kidneys: The kidneys demonstrate symmetric nephrogram and excretion. No renal or ureteral calculi. No hydronephrosis. Bowel/Mesentery: The small bowel loops are not dilated. The large bowel loops are not dilated. The appendix is visualized and normal. Lymph Nodes: No lymphadenopathy within the abdomen or pelvis. Fluid Survey: No free fluid in the abdomen. No free fluid in the pelvis. Pelvis: The pelvic viscera are unremarkable. Body Wall: Normal. Bones: No acute fracture within the abdomen or pelvis. Cervical Spine: Vertebrae: No acute fracture. Multilevel degenerative changes pronounced at C4- C5 C5-C6. Disc osteophyte complex at C5-C6 without significant canal stenosis. The odontoid and atlantoaxial joints are intact. Prevertebral soft tissues unremarkable. Alignment: Normal spinal alignment. Paraspinal Soft Tissues: No paraspinal hematoma. Lung Apices: No pneumothorax at the lung apices. Thoracic Spine: Vertebrae: No acute fracture. Alignment: Normal spinal alignment. Paraspinal Soft Tissues: No paraspinal hematoma. Lumbar Spine: Vertebrae: No acute fracture. Grade 1 anterolisthesis L4-L5. Alignment: Normal spinal alignment. Paraspinal Soft Tissues: No paraspinal hematoma. Procedure Note Yen Silverio MD - 07/27/2024 CLINICAL INDICATION: poly trauma CLINICAL INDICATION: poly trauma TECHNIQUE: Imaging of the chest abdomen and pelvis was performed, from chest throughpubic symphysis, using spiral technique, following administration of IVcontrast, Omnipaque 350, 100 mL according to the CTA Abdomen/Pelvisprotocol. Reformatted images in the coronal, sagittal, and oblique planeswere generated from the axial data set to facilitate diagnostic accuracy.In addition, 3D images were created and reviewed. Imaging of the entire cervical, thoracic, and lumbar spine was performed,using spiral technique, without contrast administration. Reformattedimages in the coronal and sagittal planes were generated from the axialdata set to facilitate diagnostic accuracy and/or surgical planning. Images of the bony pelvis were reconstructed from CT angiogram abdomen andpelvis. Reformatted images in the coronal and sagittal planes weregenerated from the axial data set to facilitate diagnostic accuracy. Total DLP (Dose-Length Product): 4369.36 mGy.cm (accession [id number]),4369.36 mGy.cm (accession [id number]), 4369.36 mGy.cm (accession [id number]),4369.36 mGy.cm (accession [id number]), 4369.36 mGy.cm (accession [id number]),4369.36 mGy.cm (accession [id number]). Please note: The reported valuerepresents the total of one or more individual components during the CTacquisition on this date and at this time, and as such, the same value mayappear in more than one CT report depending on the interpreting/reportingphysicians. COMPARISON: None. FINDINGS: CTA Chest: Aorta/Vessels: No acute traumatic aortic injury. No periaortic hematoma. Pleural/Pericardial Space: No pneumothorax. No pleural effusions. Nopericardial effusion. Lymph Nodes: No lymphadenopathy within the chest. Lungs: Except for minimal dependent atelectasis, the lungs are clear. Mediastinum: Otherwise unremarkable. Chest Wall: No chest wall hematoma or contusion. Bones: No acute fracture within the chest. CTA Abdomen : Vessels: The abdominal aorta and its major branches are unremarkable. Lung Bases: The lung bases are clear. Liver/Gallbladder/Biliary System: The liver demonstrates homogeneousenhancement. Normal Gallbladder. No intra- or extra-hepatic biliary ductaldilatation. Spleen: The spleen enhances homogeneously. Pancreas: The pancreas enhances homogeneously. Adrenals: The adrenals are morphologically unremarkable. Kidneys: The kidneys demonstrate symmetric nephrogram and excretion. Norenal or ureteral calculi. No hydronephrosis. Bowel/Mesentery: The small bowel loops are not dilated. The large bowelloops are not dilated. The appendix is visualized and normal. Lymph Nodes: No lymphadenopathy within the abdomen or pelvis. Fluid Survey: No free fluid in the abdomen. No free fluid in the pelvis. Pelvis: The pelvic viscera are unremarkable. Body Wall: Normal. Bones: No acute fracture within the abdomen or pelvis. Cervical Spine: Vertebrae: No acute fracture. Multilevel degenerative changes pronouncedat C4-C5 C5-C6. Disc osteophyte complex at C5-C6 without significant canalstenosis. The odontoid and atlantoaxial joints are intact. Prevertebralsoft tissues unremarkable. Alignment: Normal spinal alignment. Paraspinal Soft Tissues: No paraspinal hematoma. Lung Apices: No pneumothorax at the lung apices. Thoracic Spine: Vertebrae: No acute fracture. Alignment: Normal spinal alignment. Paraspinal Soft Tissues: No paraspinal hematoma. Lumbar Spine: Vertebrae: No acute fracture. Grade 1 anterolisthesis L4-L5. Alignment: Normal spinal alignment. Paraspinal Soft Tissues: No paraspinal hematoma. IMPRESSION: 1. Vascular structures are unremarkable. 2. No acute findings in the chest, abdomen or pelvis. 3. No pelvic fracture. 4. No acute fracture or malalignment of the cervical, thoracic and lumbarspine. CRITICAL RESULT: No. COMMUNICATION: Per this written report. Drafted by Yen Silverio MD on 07/27/2024 8:23 PM Final report signed by Yen Silverio MD on 07/27/2024 8:42 PM Maggie Smith MD IMG CT PROCEDURES Final R esult * CT Angio Neck (07/27/2024 8:00 PM EDT) Anatomical Region Laterality Modality Carotid Artery Computed Tomogra phy Impressions 07/27/2024 8:38 PM EDT 1. No acute intracranial abnormality. 2. No acute facial bone fracture. 3. Normal CTA of the head and neck without evidence of vascular injury. CRITICAL RESULT: No. COMMUNICATION: Per this written report. Drafted by Landon Pemberton MD on 07/27/2024 8:34 PM Final report signed by Landon Pemberton MD on 07/27/2024 8:38 PM Narrative 07/27/2024 8:38 PM EDT CLINICAL INDICATION: poly trauma TECHNIQUE: Routine contiguous axial CT images of the head and face were obtained without contrast administration. The axial dataset through the face was used to reconstruct images in the sagittal and coronal planes. Contrast-enhanced CT angiogram of the head and neck was obtained after administration of intravenous iodinated contrast using 0.6 mm axial slice thickness with multiplanar reformations and maximum intensity projections. In addition, 3D images were created and reviewed. AI Utilization: This study was analyzed with deep machine learning artificial intelligence for large vessel occlusion detection. Total DLP (Dose-Length Product): 4369.36 mGy.cm (accession [id number]), 4369.36 mGy.cm (accession [id number]), 4369.36 mGy.cm (accession [id number]), 4369.36 mGy.cm (accession [id number]). Please note: The reported value represents the total of one or more individual components during the CT acquisition on this date and at this time, and as such, the same value may appear in more than one CT report depending on the interpreting/reporting physicians. COMPARISON: None. FINDINGS: CT Head without: No acute intracranial abnormality. No evidence of acute hemorrhage or ischemia. No mass, mass effect, or midline displacement of structures. Normal ventricular size and configuration. Patent basal cisterns. No displaced or depressed calvarial fractures. The mastoid air cells are clear. CT Face: Facial bones: No acute facial bone fracture. Paranasal sinuses: The paranasal sinuses are clear. Globes: Bilateral globes appear intact. Soft tissues: No soft tissue swelling or hematoma. CTA Head: There is normal vascular anatomy. There is no evidence of vascular injury, specifically no arterial stenosis, occlusion, dissection, or pseudoaneurysm. The intracranial venous structures are also fairly well opacified and appear unremarkable. CTA Neck: There is normal vascular anatomy. There is no evidence of vascular injury, specifically no arterial stenosis, occlusion, dissection, or pseudoaneurysm. There is 0% stenosis of the ICA origins by NASCET criteria. Procedure Note Landon Pemberton MD - 07/27/2024 CLINICAL INDICATION: poly trauma TECHNIQUE: Routine contiguous axial CT images of the head and face were obtainedwithout contrast administration. The axial dataset through the face wasused to reconstruct images in the sagittal and coronal planes. Contrast-enhanced CT angiogram of the head and neck was obtained afteradministration of intravenous iodinated contrast using 0.6 mm axial slicethickness with multiplanar reformations and maximum intensity projections.In addition, 3D images were created and reviewed. AI Utilization: This study was analyzed with deep machine learningartificial intelligence for large vessel occlusion detection. Total DLP (Dose-Length Product): 4369.36 mGy.cm (accession [id number]),4369.36 mGy.cm (accession [id number]), 4369.36 mGy.cm (accession [id number]),4369.36 mGy.cm (accession [id number]). Please note: The reported valuerepresents the total of one or more individual components during the CTacquisition on this date and at this time, and as such, the same value mayappear in more than one CT report depending on the interpreting/reportingphysicians. COMPARISON: None. FINDINGS: CT Head without: No acute intracranial abnormality. No evidence of acute hemorrhage orischemia. No mass, mass effect, or midline displacement of structures.Normal ventricular size and configuration. Patent basal cisterns. No displaced or depressed calvarial fractures. The mastoid air cells areclear. CT Face: Facial bones: No acute facial bone fracture. Paranasal sinuses: The paranasal sinuses are clear. Globes: Bilateral globes appear intact. Soft tissues: No soft tissue swelling or hematoma. CTA Head: There is normal vascular anatomy. There is no evidence of vascular injury,specifically no arterial stenosis, occlusion, dissection, orpseudoaneurysm. The intracranial venous structures are also fairly wellopacified and appear unremarkable. CTA Neck: There is normal vascular anatomy. There is no evidence of vascular injury,specifically no arterial stenosis, occlusion, dissection, orpseudoaneurysm. There is 0% stenosis of the ICA origins by NASCETcriteria. IMPRESSION: 1. No acute intracranial abnormality. 2. No acute facial bone fracture. 3. Normal CTA of the head and neck without evidence of vascular injury. CRITICAL RESULT: No. COMMUNICATION: Per this written report. Drafted by Landon Pemberton MD on 07/27/2024 8:34 PM Final report signed by Landon Pemberton MD on 07/27/2024 8:38 PM us Maggie Smith MD IMG CT PROCEDURES Final R esult * CT Face wo IV Contrast (07/27/2024 8:00 PM EDT) Anatomical Region Laterality Modality Facial bones Computed Tomogra phy Impressions 07/27/2024 8:38 PM EDT 1. No acute intracranial abnormality. 2. No acute facial bone fracture. 3. Normal CTA of the head and neck without evidence of vascular injury. CRITICAL RESULT: No. COMMUNICATION: Per this written report. Drafted by Landon Pemberton MD on 07/27/2024 8:34 PM Final report signed by Landon Pemberton MD on 07/27/2024 8:38 PM Narrative 07/27/2024 8:38 PM EDT CLINICAL INDICATION: poly trauma TECHNIQUE: Routine contiguous axial CT images of the head and face were obtained without contrast administration. The axial dataset through the face was used to reconstruct images in the sagittal and coronal planes. Contrast-enhanced CT angiogram of the head and neck was obtained after administration of intravenous iodinated contrast using 0.6 mm axial slice thickness with multiplanar reformations and maximum intensity projections. In addition, 3D images were created and reviewed. AI Utilization: This study was analyzed with deep machine learning artificial intelligence for large vessel occlusion detection. Total DLP (Dose-Length Product): 4369.36 mGy.cm (accession [id number]), 4369.36 mGy.cm (accession [id number]), 4369.36 mGy.cm (accession [id number]), 4369.36 mGy.cm (accession [id number]). Please note: The reported value represents the total of one or more individual components during the CT acquisition on this date and at this time, and as such, the same value may appear in more than one CT report depending on the interpreting/reporting physicians. COMPARISON: None. FINDINGS: CT Head without: No acute intracranial abnormality. No evidence of acute hemorrhage or ischemia. No mass, mass effect, or midline displacement of structures. Normal ventricular size and configuration. Patent basal cisterns. No displaced or depressed calvarial fractures. The mastoid air cells are clear. CT Face: Facial bones: No acute facial bone fracture. Paranasal sinuses: The paranasal sinuses are clear. Globes: Bilateral globes appear intact. Soft tissues: No soft tissue swelling or hematoma. CTA Head: There is normal vascular anatomy. There is no evidence of vascular injury, specifically no arterial stenosis, occlusion, dissection, or pseudoaneurysm. The intracranial venous structures are also fairly well opacified and appear unremarkable. CTA Neck: There is normal vascular anatomy. There is no evidence of vascular injury, specifically no arterial stenosis, occlusion, dissection, or pseudoaneurysm. There is 0% stenosis of the ICA origins by NASCET criteria. Procedure Note Landon Pemberton MD - 07/27/2024 CLINICAL INDICATION: poly trauma TECHNIQUE: Routine contiguous axial CT images of the head and face were obtainedwithout contrast administration. The axial dataset through the face wasused to reconstruct images in the sagittal and coronal planes. Contrast-enhanced CT angiogram of the head and neck was obtained afteradministration of intravenous iodinated contrast using 0.6 mm axial slicethickness with multiplanar reformations and maximum intensity projections.In addition, 3D images were created and reviewed. AI Utilization: This study was analyzed with deep machine learningartificial intelligence for large vessel occlusion detection. Total DLP (Dose-Length Product): 4369.36 mGy.cm (accession [id number]),4369.36 mGy.cm (accession [id number]), 4369.36 mGy.cm (accession [id number]),4369.36 mGy.cm (accession [id number]). Please note: The reported valuerepresents the total of one or more individual components during the CTacquisition on this date and at this time, and as such, the same value mayappear in more than one CT report depending on the interpreting/reportingphysicians. COMPARISON: None. FINDINGS: CT Head without: No acute intracranial abnormality. No evidence of acute hemorrhage orischemia. No mass, mass effect, or midline displacement of structures.Normal ventricular size and configuration. Patent basal cisterns. No displaced or depressed calvarial fractures. The mastoid air cells areclear. CT Face: Facial bones: No acute facial bone fracture. Paranasal sinuses: The paranasal sinuses are clear. Globes: Bilateral globes appear intact. Soft tissues: No soft tissue swelling or hematoma. CTA Head: There is normal vascular anatomy. There is no evidence of vascular injury,specifically no arterial stenosis, occlusion, dissection, orpseudoaneurysm. The intracranial venous structures are also fairly wellopacified and appear unremarkable. CTA Neck: There is normal vascular anatomy. There is no evidence of vascular injury,specifically no arterial stenosis, occlusion, dissection, orpseudoaneurysm. There is 0% stenosis of the ICA origins by NASCETcriteria. IMPRESSION: 1. No acute intracranial abnormality. 2. No acute facial bone fracture. 3. Normal CTA of the head and neck without evidence of vascular injury. CRITICAL RESULT: No. COMMUNICATION: Per this written report. Drafted by Landon Pemberton MD on 07/27/2024 8:34 PM Final report signed by Landon Pemberton MD on 07/27/2024 8:38 PM us Maggie Smith MD IMG CT PROCEDURES Final R esult * CT Head wo IV Contrast (07/27/2024 8:00 PM EDT) Anatomical Region Laterality Modality Head Computed Tomogra phy Impressions 07/27/2024 8:38 PM EDT 1. No acute intracranial abnormality. 2. No acute facial bone fracture. 3. Normal CTA of the head and neck without evidence of vascular injury. CRITICAL RESULT: No. COMMUNICATION: Per this written report. Drafted by Landon Pemberton MD on 07/27/2024 8:34 PM Final report signed by Landon Pemberton MD on 07/27/2024 8:38 PM Narrative 07/27/2024 8:38 PM EDT CLINICAL INDICATION: poly trauma TECHNIQUE: Routine contiguous axial CT images of the head and face were obtained without contrast administration. The axial dataset through the face was used to reconstruct images in the sagittal and coronal planes. Contrast-enhanced CT angiogram of the head and neck was obtained after administration of intravenous iodinated contrast using 0.6 mm axial slice thickness with multiplanar reformations and maximum intensity projections. In addition, 3D images were created and reviewed. AI Utilization: This study was analyzed with deep machine learning artificial intelligence for large vessel occlusion detection. Total DLP (Dose-Length Product): 4369.36 mGy.cm (accession [id number]), 4369.36 mGy.cm (accession [id number]), 4369.36 mGy.cm (accession [id number]), 4369.36 mGy.cm (accession [id number]). Please note: The reported value represents the total of one or more individual components during the CT acquisition on this date and at this time, and as such, the same value may appear in more than one CT report depending on the interpreting/reporting physicians. COMPARISON: None. FINDINGS: CT Head without: No acute intracranial abnormality. No evidence of acute hemorrhage or ischemia. No mass, mass effect, or midline displacement of structures. Normal ventricular size and configuration. Patent basal cisterns. No displaced or depressed calvarial fractures. The mastoid air cells are clear. CT Face: Facial bones: No acute facial bone fracture. Paranasal sinuses: The paranasal sinuses are clear. Globes: Bilateral globes appear intact. Soft tissues: No soft tissue swelling or hematoma. CTA Head: There is normal vascular anatomy. There is no evidence of vascular injury, specifically no arterial stenosis, occlusion, dissection, or pseudoaneurysm. The intracranial venous structures are also fairly well opacified and appear unremarkable. CTA Neck: There is normal vascular anatomy. There is no evidence of vascular injury, specifically no arterial stenosis, occlusion, dissection, or pseudoaneurysm. There is 0% stenosis of the ICA origins by NASCET criteria. Procedure Note Landon Pemberton MD - 07/27/2024 CLINICAL INDICATION: poly trauma TECHNIQUE: Routine contiguous axial CT images of the head and face were obtainedwithout contrast administration. The axial dataset through the face wasused to reconstruct images in the sagittal and coronal planes. Contrast-enhanced CT angiogram of the head and neck was obtained afteradministration of intravenous iodinated contrast using 0.6 mm axial slicethickness with multiplanar reformations and maximum intensity projections.In addition, 3D images were created and reviewed. AI Utilization: This study was analyzed with deep machine learningartificial intelligence for large vessel occlusion detection. Total DLP (Dose-Length Product): 4369.36 mGy.cm (accession [id number]),4369.36 mGy.cm (accession [id number]), 4369.36 mGy.cm (accession [id number]),4369.36 mGy.cm (accession [id number]). Please note: The reported valuerepresents the total of one or more individual components during the CTacquisition on this date and at this time, and as such, the same value mayappear in more than one CT report depending on the interpreting/reportingphysicians. COMPARISON: None. FINDINGS: CT Head without: No acute intracranial abnormality. No evidence of acute hemorrhage orischemia. No mass, mass effect, or midline displacement of structures.Normal ventricular size and configuration. Patent basal cisterns. No displaced or depressed calvarial fractures. The mastoid air cells areclear. CT Face: Facial bones: No acute facial bone fracture. Paranasal sinuses: The paranasal sinuses are clear. Globes: Bilateral globes appear intact. Soft tissues: No soft tissue swelling or hematoma. CTA Head: There is normal vascular anatomy. There is no evidence of vascular injury,specifically no arterial stenosis, occlusion, dissection, orpseudoaneurysm. The intracranial venous structures are also fairly wellopacified and appear unremarkable. CTA Neck: There is normal vascular anatomy. There is no evidence of vascular injury,specifically no arterial stenosis, occlusion, dissection, orpseudoaneurysm. There is 0% stenosis of the ICA origins by NASCETcriteria. IMPRESSION: 1. No acute intracranial abnormality. 2. No acute facial bone fracture. 3. Normal CTA of the head and neck without evidence of vascular injury. CRITICAL RESULT: No. COMMUNICATION: Per this written report. Drafted by Landon Pemberton MD on 07/27/2024 8:34 PM Final report signed by Landon Pemberton MD on 07/27/2024 8:38 PM Maggie Smith MD IMG CT PROCEDURES Final R esult * CT Angio Head (07/27/2024 8:00 PM EDT) Anatomical Region Laterality Modality [place] Computed Tomogr aphy Impressions 07/27/2024 8:38 PM EDT 1. No acute intracranial abnormality. 2. No acute facial bone fracture. 3. Normal CTA of the head and neck without evidence of vascular injury. CRITICAL RESULT: No. COMMUNICATION: Per this written report. Drafted by Landon Pemberton MD on 07/27/2024 8:34 PM Final report signed by Landon Pemberton MD on 07/27/2024 8:38 PM Narrative 07/27/2024 8:38 PM EDT CLINICAL INDICATION: poly trauma TECHNIQUE: Routine contiguous axial CT images of the head and face were obtained without contrast administration. The axial dataset through the face was used to reconstruct images in the sagittal and coronal planes. Contrast-enhanced CT angiogram of the head and neck was obtained after administration of intravenous iodinated contrast using 0.6 mm axial slice thickness with multiplanar reformations and maximum intensity projections. In addition, 3D images were created and reviewed. AI Utilization: This study was analyzed with deep machine learning artificial intelligence for large vessel occlusion detection. Total DLP (Dose-Length Product): 4369.36 mGy.cm (accession [id number]), 4369.36 mGy.cm (accession [id number]), 4369.36 mGy.cm (accession [id number]), 4369.36 mGy.cm (accession [id number]). Please note: The reported value represents the total of one or more individual components during the CT acquisition on this date and at this time, and as such, the same value may appear in more than one CT report depending on the interpreting/reporting physicians. COMPARISON: None. FINDINGS: CT Head without: No acute intracranial abnormality. No evidence of acute hemorrhage or ischemia. No mass, mass effect, or midline displacement of structures. Normal ventricular size and configuration. Patent basal cisterns. No displaced or depressed calvarial fractures. The mastoid air cells are clear. CT Face: Facial bones: No acute facial bone fracture. Paranasal sinuses: The paranasal sinuses are clear. Globes: Bilateral globes appear intact. Soft tissues: No soft tissue swelling or hematoma. CTA Head: There is normal vascular anatomy. There is no evidence of vascular injury, specifically no arterial stenosis, occlusion, dissection, or pseudoaneurysm. The intracranial venous structures are also fairly well opacified and appear unremarkable. CTA Neck: There is normal vascular anatomy. There is no evidence of vascular injury, specifically no arterial stenosis, occlusion, dissection, or pseudoaneurysm. There is 0% stenosis of the ICA origins by NASCET criteria. Procedure Note Landon Pemberton MD - 07/27/2024 CLINICAL INDICATION: poly trauma TECHNIQUE: Routine contiguous axial CT images of the head and face were obtainedwithout contrast administration. The axial dataset through the face wasused to reconstruct images in the sagittal and coronal planes. Contrast-enhanced CT angiogram of the head and neck was obtained afteradministration of intravenous iodinated contrast using 0.6 mm axial slicethickness with multiplanar reformations and maximum intensity projections.In addition, 3D images were created and reviewed. AI Utilization: This study was analyzed with deep machine learningartificial intelligence for large vessel occlusion detection. Total DLP (Dose-Length Product): 4369.36 mGy.cm (accession [id number]),4369.36 mGy.cm (accession [id number]), 4369.36 mGy.cm (accession [id number]),4369.36 mGy.cm (accession [id number]). Please note: The reported valuerepresents the total of one or more individual components during the CTacquisition on this date and at this time, and as such, the same value mayappear in more than one CT report depending on the interpreting/reportingphysicians. COMPARISON: None. FINDINGS: CT Head without: No acute intracranial abnormality. No evidence of acute hemorrhage orischemia. No mass, mass effect, or midline displacement of structures.Normal ventricular size and configuration. Patent basal cisterns. No displaced or depressed calvarial fractures. The mastoid air cells areclear. CT Face: Facial bones: No acute facial bone fracture. Paranasal sinuses: The paranasal sinuses are clear. Globes: Bilateral globes appear intact. Soft tissues: No soft tissue swelling or hematoma. CTA Head: There is normal vascular anatomy. There is no evidence of vascular injury,specifically no arterial stenosis, occlusion, dissection, orpseudoaneurysm. The intracranial venous structures are also fairly wellopacified and appear unremarkable. CTA Neck: There is normal vascular anatomy. There is no evidence of vascular injury,specifically no arterial stenosis, occlusion, dissection, orpseudoaneurysm. There is 0% stenosis of the ICA origins by NASCETcriteria. IMPRESSION: 1. No acute intracranial abnormality. 2. No acute facial bone fracture. 3. Normal CTA of the head and neck without evidence of vascular injury. CRITICAL RESULT: No. COMMUNICATION: Per this written report. Drafted by Landon Pemberton MD on 07/27/2024 8:34 PM Final report signed by Landon Pemberton MD on 07/27/2024 8:38 PM us Maggie Smith MD IMG CT PROCEDURES Final R esult * (ABNORMAL) Trauma shock panel blood gas (07/27/2024 7:59 PM EDT) pH, Venous 7.36 7.32 - 7.43 LAB HEMATOLOGY METHOD 07/27/2024 8:07 PM EDT [facility] Bicarbonate, Calculated, Venous 29(H) 22 - 26 mmol/L LAB HEMATOLOGY METHOD 07/27/2024 8:07 PM EDT [facility] Base Excess, Venous 2.7 -2.0 - 3.0 mmol/L LAB HEMATOLOGY METHOD 07/27/2024 8:07 PM EDT [facility] Lactate, Venous, Whole Blood 1.5 0.5 - 2.2 mmol/L LAB HEMATOLOGY METHOD 07/27/2024 8:07 PM EDT [facility] Blood Venous blood specimen / Unknown Venipuncture / Unknown 07/27/2024 7:59 PM EDT 07/27/2024 8:05 PM EDT us Ryanne Meli Altair Prep LAB BLOOD ORDERABLES Final Re sult [facility] [address] [place] [address] * Ethyl Alcohol Plasma (07/27/2024 7:59 PM EDT) Ethanol Plasma <10 <10 mg/dL 07/27/2024 8:33 PM EDT [facility] Blood Venous blood specimen / Unknown Venipuncture / Unknown 07/27/2024 7:59 PM EDT 07/27/2024 8:05 PM EDT Narrative [facility] - 07/27/2024 8:33 PM EDT Enzymatic Assay: Performed on [employer] us [email or web address] DO LAB BLOOD ORDERABLES Final Re sult [facility] [address] [place] [address] * TEG Global Hemostasis with Lysis (07/27/2024 7:59 PM EDT) R, Lysis 5.7 4.6 - 9.1 min 07/27/2024 9:22 PM EDT [facility], Rapid, Lysis 64.4 52.0 - 70.0 mm 07/27/2024 9:22 PM EDT [facility] MA, Fibrinogen, Lysis 18.8 15.0 - 32.0 mm 07/27/2024 9:22 PM EDT [facility] LY30 0.3 0.0 - 2.6 % 07/27/2024 9:22 PM EDT [facility] Blood Venous blood specimen / Unknown Venipuncture / Unknown 07/27/2024 7:59 PM EDT 07/27/2024 8:15 PM EDT [email or web address] DO LAB BLOOD ORDERABLES Final Re sult Performing Organization Address City/[facility]/ZIP Co de Phone Number [facility] [address] [place] [address] * APTT (PTT) (07/27/2024 7:59 PM EDT) [facility] aPTT 29 25 - 35 sec 07/27/2024 8:17 PM EDT [facility] Blood Venous blood specimen / Unknown Venipuncture / Unknown 07/27/2024 7:59 PM EDT 07/27/2024 8:05 PM EDT [email or web address] DO LAB BLOOD ORDERABLES Final Re sult [facility] [address] [place] [address] * (ABNORMAL) PT-INR (07/27/2024 7:59 PM EDT) Pathologist [facility] Prothrombin Time 15.6(H) 12.0 - 14.3 sec 07/27/2024 8:17 PM EDT [facility] INR 1.3(H) 0.9 - 1.1 07/27/2024 8:17 PM EDT [facility] Blood Venous blood specimen / Unknown Venipuncture / Unknown 07/27/2024 7:59 PM EDT 07/27/2024 8:05 PM EDT Narrative [facility] - 07/27/2024 8:17 PM EDT OPTIMAL INR RANGES FOR PATIENT ON ORAL ANTICOAGULANT THERAPY Prevention of venous thromboembolism INR 2.0 to 3.0 In patients with heart disease: Atrial fibrillation INR 2.0 to 3.0 Valvular heart disease INR 2.0 to 3.0 Tissue heart valves INR 2.0 to 3.0 Mechanical prosthetic valves INR 2.5 to 3.5 Prevention of recurrent [place] INR 2.5 to 3.5 us Ryanne Dacosta DO LAB BLOOD ORDERABLES Final Re sult [facility] [address] [place] [address] * (ABNORMAL) CBC w/o diff (07/27/2024 7:59 PM EDT) WBC Count 6.59 3.70 - 10.30 10*3/uL LAB HEMATOLOGY METHOD 07/27/2024 8:07 PM EDT [facility] RBC Count 4.24(L) 4.60 - 6.10 10*6/uL LAB HEMATOLOGY METHOD 07/27/2024 8:07 PM EDT [facility] HGB 12.2(L) 13.7 - 17.5 g/dL LAB HEMATOLOGY METHOD 07/27/2024 8:07 PM EDT [facility] HCT 37.8(L) 40.0 - 51.0 % LAB HEMATOLOGY METHOD 07/27/2024 8:07 PM EDT [facility] Platelet Count 301 155 - 369 10*3/uL LAB HEMATOLOGY METHOD 07/27/2024 8:07 PM EDT [facility] MCV 89 79 - 98 fL LAB HEMATOLOGY METHOD 07/27/2024 8:07 PM EDT [facility] MCH 28.8 26.0 - 32.0 pg LAB HEMATOLOGY METHOD 07/27/2024 8:07 PM EDT [facility] MCHC 32.3 30.7 - 35.5 g/dL LAB HEMATOLOGY METHOD 07/27/2024 8:07 PM EDT [facility] RDW 13.6 11.5 - 14.5 % LAB HEMATOLOGY METHOD 07/27/2024 8:07 PM EDT [facility] MPV 9.9 8.8 - 12.5 fL LAB HEMATOLOGY METHOD 07/27/2024 8:07 PM EDT [facility] nRBC 0.0 <=0.0 per 100 WBCs LAB HEMATOLOGY METHOD 07/27/2024 8:07 PM EDT [facility] Blood Venous blood specimen / Unknown Venipuncture / Unknown 07/27/2024 7:59 PM EDT 07/27/2024 8:05 PM EDT [facility] LAB BLOOD ORDERABLES Final Re sult Performing Organization Address City/[facility]/ZIP Co de Phone Number [facility] [address] [place] [address] * Type and Screen (07/27/2024 7:59 PM EDT) ABO/Rh O Positive 07/27/2024 7:27 PM EDT [facility] Antibody Screen Negative 07/27/2024 7:27 PM EDT [facility] Specimen Expiration 07/30/2024 23:59 07/27/2024 7:27 PM EDT [facility] Blood Venous blood specimen / Unknown Venipuncture / Unknown 07/27/2024 7:59 PM EDT 07/27/2024 8:07 PM EDT [facility] BLOOD BANK TEST ORDERABLE S Final Result Performing Organization Address City/[facility]/ZIP Co de Phone Number BLOOD BANK [address] [place] [address], [place] * (ABNORMAL) CMP (07/27/2024 7:59 PM EDT) Glucose, Plasma 120(H) 74 - 99 mg/dL 07/27/2024 8:31 PM EDT [facility] BUN, Plasma 19 8 - 23 mg/dL 07/27/2024 8:31 PM EDT [facility] Creatinine, Plasma 1.23(H) 0.70 - 1.20 mg/dL 07/27/2024 8:31 PM EDT [facility] BUN/Creatinine Ratio 15 07/27/2024 8:31 PM EDT [facility] Sodium, Plasma 144 136 - 145 mmol/L 07/27/2024 8:31 PM EDT [facility] Potassium, Plasma 4.2 3.6 - 4.9 mmol/L 07/27/2024 8:31 PM EDT [facility] Chloride, Plasma 105 97 - 107 mmol/L 07/27/2024 8:31 PM EDT [facility] CO2, Plasma 27 22 - 29 mmol/L 07/27/2024 8:31 PM EDT [facility] Anion Gap 12 6 - 16 mmol/L 07/27/2024 8:31 PM EDT [facility] Total Calcium, Plasma 9.1 8.9 - 10.2 mg/dL 07/27/2024 8:31 PM EDT [facility] Total Protein 6.1(L) 6.3 - 7.9 g/dL 07/27/2024 8:31 PM EDT [facility] Albumin, Plasma 3.7 3.5 - 5.2 g/dL 07/27/2024 8:31 PM EDT [facility] AST, Plasma 28 10 - 50 U/L 07/27/2024 8:31 PM EDT [facility] ALT, Plasma 9(L) 10 - 50 U/L 07/27/2024 8:31 PM EDT [facility] Alkaline Phosphatase, Plasma 69 40 - 115 U/L 07/27/2024 8:31 PM EDT [facility] Total Bilirubin, Plasma 0.4 0.2 - 1.1 mg/dL 07/27/2024 8:31 PM EDT [facility] eGFRcr 62.8 mL/min/1.7 3m*2 07/27/2024 8:31 PM EDT [facility] Comment:Reported eGFRcr in m L/min/1.73m2 is based the CKD-EPI 2020 equation that does not use a race coefficient. Blood Venous blood specimen / Unknown Venipuncture / Unknown 07/27/2024 7:59 PM EDT 07/27/2024 8:05 PM EDT Ryanne Dacosta DO LAB BLOOD ORDERABLES Final Re sult [facility] [address] [place] [address] * XR Pelvis 1 or 2 Views (07/27/2024 7:44 PM EDT) Anatomical Region Laterality Modality Body, Pelvis Digital Radiogra phy Impressions 07/27/2024 7:50 PM EDT No evidence of acute injury within the imaged chest or pelvis. CRITICAL RESULT: No. COMMUNICATION: Per this written report. Preliminary report signed by Bee Kathleen MD on 07/27/2024 7:45 PM By electronically signing this report, I, the attending physician, attest that I have personally reviewed the images/data for the above examination(s) and agree with the final edited report. Drafted by Bee Kathleen MD on 07/27/2024 7:42 PM Final report signed by Yen Silverio MD on 07/27/2024 7:50 PM Narrative 07/27/2024 7:50 PM EDT CLINICAL INDICATION: Trauma Alert Red TECHNIQUE: Single AP view of the chest. Single view of the pelvis. COMPARISON: None. FINDINGS: Cardiac silhouette and mediastinal contours are within normal limits. Low lung volumes. Elevated right hemidiaphragm and minimal basilar atelectasis. No consolidation, pleural effusion or pneumothorax. No acute osseous findings. No pelvic fracture. Procedure Note Yen Silverio MD - 07/27/2024 CLINICAL INDICATION: Trauma Alert Red TECHNIQUE: Single AP view of the chest. Single view of the pelvis. COMPARISON: None. FINDINGS: Cardiac silhouette and mediastinal contours are within normal limits. Lowlung volumes. Elevated right hemidiaphragm and minimal basilaratelectasis. No consolidation, pleural effusion or pneumothorax. No acuteosseous findings. No pelvic fracture. IMPRESSION: No evidence of acute injury within the imaged chest or pelvis. CRITICAL RESULT: No. COMMUNICATION: Per this written report. Preliminary report signed by Bee Kathleen MD on 07/27/2024 7:45 PM By electronically signing this report, I, the attending physician, attestthat I have personally reviewed the images/data for the aboveexamination(s) and agree with the final edited report. Drafted by Bee Kathleen MD on 07/27/2024 7:42 PM Final report signed by Yen Silverio MD on 07/27/2024 7:50 PM us Ryanne Dacosta DO IMG XR PROCEDURES Final Resul t * XR Chest 1 View (07/27/2024 7:43 PM EDT) Anatomical Region Laterality Modality Chest Digital Radiogra phy Impressions 07/27/2024 7:50 PM EDT No evidence of acute injury within the imaged chest or pelvis. CRITICAL RESULT: No. COMMUNICATION: Per this written report. Preliminary report signed by Bee Kathleen MD on 07/27/2024 7:45 PM By electronically signing this report, I, the attending physician, attest that I have personally reviewed the images/data for the above examination(s) and agree with the final edited report. Drafted by Bee Kathleen MD on 07/27/2024 7:42 PM Final report signed by Yen Silverio MD on 07/27/2024 7:50 PM Narrative 07/27/2024 7:50 PM EDT CLINICAL INDICATION: Trauma Alert Red TECHNIQUE: Single AP view of the chest. Single view of the pelvis. COMPARISON: None. FINDINGS: Cardiac silhouette and mediastinal contours are within normal limits. Low lung volumes. Elevated right hemidiaphragm and minimal basilar atelectasis. No consolidation, pleural effusion or pneumothorax. No acute osseous findings. No pelvic fracture. Procedure Note Yen Silverio MD - 07/27/2024 CLINICAL INDICATION: Trauma Alert Red TECHNIQUE: Single AP view of the chest. Single view of the pelvis. COMPARISON: None. FINDINGS: Cardiac silhouette and mediastinal contours are within normal limits. Lowlung volumes. Elevated right hemidiaphragm and minimal basilaratelectasis. No consolidation, pleural effusion or pneumothorax. No acuteosseous findings. No pelvic fracture. IMPRESSION: No evidence of acute injury within the imaged chest or pelvis. CRITICAL RESULT: No. COMMUNICATION: Per this written report. Preliminary report signed by Bee Kathleen MD on 07/27/2024 7:45 PM By electronically signing this report, I, the attending physician, attestthat I have personally reviewed the images/data for the aboveexamination(s) and agree with the final edited report. Drafted by Bee Kathleen MD on 07/27/2024 7:42 PM Final report signed by Yen Silverio MD on 07/27/2024 7:50 PM us Ryanne Dacosta DO IMG XR PROCEDURES Final Resul t * POCT glucose meter (07/27/2024 7:40 PM EDT) POCT Glucose 98 74 - 99 mg/dL 07/27/2024 7:42 PM EDT [facility] Comment:Accuracy of a glucos e result obtained from a capillary whole blood specimen relies upon adequate, non-compromised capillary blood flow. If the capillary glucose result is not consistent with the patient's clinical signs and symptoms, glucose testing should be repeated with either an arterial or venous sample on the glucometer or sent to the main labortory for testing. Comment 07/27/2024 7:42 PM EDT [facility] Automobile Dealer ID Ronald Mantilla 07/28/19 25 7:42 PM EDT [facility] Device ID [id number] 07/27/2024 7:42 PM EDT [facility] Specimen Type POC Capillary 07/27/2024 7:42 PM EDT [facility] Blood Capillary blood specimen / Unknown 07/27/2024 7:40 PM EDT 07/27/2024 7:42 PM EDT us Generic Provider Poct LAB POINT OF CARE TEST DOCKED DEVICE UNSOLICITED RESULTS Final Result [facility] [address] [place] [id number] from Last 3 Months Insurance [place] [id number] [employer] MEDICARE Advance Directives Documents on File Type Date Recorded 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
[2024-10-22 14:05] LABS: Hematocrit 38.7 % (42.0-52.0); Hemoglobin 12.3 g/dL (14.1-18.0); Immature Granulocytes % 0.4 %; Mean Corpuscular HGB Conc 31.8 g/dL (31.8-35.4); Mean Corpuscular Hemoglobin 28.5 pg (27.0-31.2); Mean Corpuscular Volume 89.6 fl (80-94); Nucleated Red Blood Cells % 0 %; Platelet Count 319 K/mm3 (142-424); Red Blood Count 4.32 M/mm3 (4.60-6.20); Red Cell Distribution Width-SD 45.6 fL; White Blood Count 10.5 K/mm3 (4.8-10.8)
--- NOTE | 2024-10-22 14:08 | XR_ITS ---
FINAL REPORT TECHNIQUE: Single view chest CLINICAL HISTORY: short of breath FINDINGS: A single view of the chest was obtained. The heart and mediastinum are within normal limits. The lungs are clear. There is no pneumothorax. IMPRESSION: No acute cardiopulmonary process. Reviewed, Interpreted and Dictated by Archie Hawk MD Transcribed by Xochitl Ahmadi Authenticated and [facility]
--- NOTE | 2024-10-22 14:09 | XR_ITS ---
FINAL REPORT CLINICAL HISTORY: lesion FINDINGS: LEFT ANKLE 4 views demonstrate no acute fracture or dislocation. The visualized joint spaces are normally aligned. There is diffuse soft tissue swelling. No focal bony lesion is seen. There is questionable gas in the soft tissues. IMPRESSION: Soft tissue swelling without focal bony abnormality. If there is concern for infection, recommend CT or MRI for further evaluation. Reviewed, Interpreted and Dictated by Archie Hawk MD Transcribed by Xochitl Ahmadi Authenticated and . [facility]
--- NOTE | 2024-10-22 14:12 | ED_ITS ---
<Statement entered by Nirmala Padgett DO - 10/23/24 08:58> I was consulted by the LORNA, and we discussed the complexity of problems being addressed. I approve the treatment and management plan for this patient's care in the emergency department, thus performing a substantial portion of the medical decision making. Nirmala Padgett DO Discharge Plan Disposition Patient Disposition: Home, Self-Care Prescriptions Prescriptions: New clindamycin HCl [Cleocin HCl] 300 mg capsule 300 mg PO BID 7 Days Qty: 14 0RF No Action atorvastatin [Lipitor] 20 mg Tablet 20 mg PO DAILY carbidopa-levodopa 25-250 mg tablet 1 tab PO AM Patient Comments: TAKE ONE TABLET BY MOUTH TWICE DAILY clonazepam 0.5 mg Tablet 0.5 mg PO HS Rx Instructions: administer 30 minutes before bedtime amlodipine 2.5 mg Tablet 2.5 mg PO DAILY saw palmetto 500 mg Capsule 2,400 mg PO DAILY Rx Instructions: give with food (meal/snack) Referrals Follow up/Referrals: Wound care [Other] - See instructions Pia Bunch MD [Primary Care Provider, Medical] - See instructions Activity Restrictions/Add. Instructions Additional Instructions/Restrictions: Take medications as directed. Please follow-up with wound care. Clinical Impressions Clinical Impression: Cellulitis Instructions Patient Instructions: Cellulitis Print Language Print Language: Serbian Discharge ED Provider: Isaias Sears General Adult HPI General Chief complaint: Skin/Abscess/Foreign Body Stated complaint: infection in left foot in wheelchair Time Seen by Provider: 10/22/24 13:48 Mode of Arrival: Wheelchair Source of Information: Spouse Description of Symptoms (Recalled from ER Triage Doc. by RN): pt presents to ED c/o left foot infection. states pt has a wound to left ankle. denies fever, diabetes or known injury. History of Present Illness HPI narrative: 74-year-old male presents to the ED today with complaint of a left ankle lesion. This has been there for a while. He had it while he was in the [place]. She thinks that this was caused by his crocs while he was in the sn[place]. She states that she saw it but never said anything about it. She says he has been home for 1 week from the sn[place] and she has been elevating his legs and has been using cream on the area and it has improved some. She went to the urgent treatment center with him and they told her that this could be something very serious so she brought him to the emergency department. Patient does have a history of Parkinson's and dementia. No heart problems no lung problems. No fevers or chills. No nausea, vomiting or diarrhea. No other symptoms. Related Data Home Medications ?Medication ?Instructions ?Recorded ?Confirmed atorvastatin 20 mg tablet (Lipitor) 20 mg PO DAILY 07/25/23 carbidopa 25 mg-levodopa 250 mg 1 tab PO AM 07/25/23 0 07/25/23 tablet amlodipine 2.5 mg tablet 2.5 mg PO DAILY 07/27/23 clonazepam 0.5 mg tablet 0.5 mg PO HS 07/27/23 saw palmetto 500 mg capsule 2,400 mg PO DAILY 07/27/23 07/27/23 Previous Rx's ?Medication ?Instructions ?Recorded clindamycin HCl 300 mg capsule 300 mg PO BID 7 days #1 4 caps 10/22/24 (Cleocin HCl) Allergies Allergy/AdvReac Type Severity Reaction Status Date / Time No Known Drug Allergies Allergy Unknown Verified 07/25/23 12:27 (NKDA) [facility] Disclaimer: The information contained in this section may have been updated after the patient was seen, as this information can be updated by other users. Medical History Parkinson disease Hypertension Surgical History No history of previous surgery Family History Other Family history of cancer Social History (Updated 07/27/23 @ 10:58 by Rj Mehta CRNA) Smoking Status: Never smoker alcohol intake: never substance use type: denies use current occupational status: employed Travel in the last 8 weeks?: None Have you lived/traveled outside US in past 30 days?: No Contact w/someone who lives/traveled outside US past 30 days?: No Exposure to someone with infectious disease in past 14 days?: No Do you have a fever (greater than 100.4 F or 38 C)?: No Have you tested positive for COVID-19?: No Exposed to someone with COVID-19 in past 14 days?: No Do you have a sore throat?: No Do you have a cough?: No Do you have any weakness?: No Do you have any diarrhea?: No Are you experiencing any unusual bleeding?: No Do you have any muscle aches/pain?: No Do you have any abdominal pain?: No Are you experiencing loss of taste or smell?: No ROS Obtained: Yes Systems reviewed as appropriate & no additional complaints except as documented Constitutional Constitutional: Reports as per HPI Physical Exam General General appearance: alert Head Head exam: atraumatic and normocephalic Eye Eye exam: Present PERRL and EOMI ENT ENT exam: Present normal oropharynx and mucous membranes moist Neck Neck exam: Present normal inspection, full ROM and trachea midline Respiratory Respiratory exam: Present normal lung sounds bilaterally Cardiovascular Cardiovascular exam: Present regular rate, normal rhythm, normal heart sounds, +S1 and +S2 Abdominal Exam Abdominal exam: Present soft and normal bowel sounds Extremities Exam Extremities exam: Present full ROM, normal capillary refill, edema (Bilateral lower extremities with edema, left worse than right, small dime size area that is scabbed in the center) and joint swelling Neurological Exam Neurological exam: Present alert, oriented X3 and normal gait Skin Skin exam: Present warm, dry, intact and other (Area on the left ankle that is the size of a dime that is scabbed in the center.) Medical Decision Making Medical Records Screening: Per USPSTF and CDC recommendations, given the prevalence of disease in our region, it is our hospital?s policy to screen for HIV and viral Hepatitis for all patients aged 18 and over and those with ongoing risk factors. Sunday Inquiry Pt receiving controlled substance: No Sunday was queried for this patient: No Vital Signs: 10/22/24 13:42 10/22/24 14:01 10/22/24 14:30 Temperature 99.0 F Temperature Source Oral Pulse Rate 95 H 89 Pulse Rate [Right Radial] 94 H Respiratory Rate 18 Blood Pressure 126/69 120/69 Blood Pressure [Right Arm] 150/78 H Blood Pressure Mean 95 86 Blood Pressure Mean [Right Arm] 102 Blood Pressure Source [Right Arm] Automatic Cuff Blood Pressure Position [Right Arm] Sitting 02 Sat by Pulse Oximetry 97 95 96 Oxygen Delivery Method Room Air 10/22/24 15:00 10/22/24 15:30 10/22/24 16:01 Temperature Temperature Source Pulse Rate 92 H 92 H 98 H Pulse Rate [Right Radial] Respiratory Rate Blood Pressure 143/73 H 139/61 151/74 H Blood Pressure [Right Arm] Blood Pressure Mean Blood Pressure Mean [Right Arm] Blood Pressure Source [Right Arm] Blood Pressure Position [Right Arm] 02 Sat by Pulse Oximetry 97 95 97 Oxygen Delivery Method 10/22/24 16:30 10/22/24 17:30 Temperature 97.9 F Temperature Source Pulse Rate 99 H 99 H Pulse Rate [Right Radial] Respiratory Rate 16 Blood Pressure 144/72 H 144/72 H Blood Pressure [Right Arm] Blood Pressure Mean Blood Pressure Mean [Right Arm] Blood Pressure Source [Right Arm] Blood Pressure Position [Right Arm] 02 Sat by Pulse Oximetry 96 Oxygen Delivery Method Lab Data Lab Results 10/22/24 14:00: WBC 10.5, RBC 4.32 L, Hgb 12.3 L, Hct 38.7 L, MCV 89.6, MCH 28.5, MCHC 31.8, RDW 14.0, Plt Count 319, MPV 9.8, Neut % (Auto) 80.0, Lymph % (Auto) 10.8, [place] % (Auto) 8.2, Eos % (Auto) 0.3, Baso % (Auto) 0.3, Neut # (Auto) 8.4 H, Lymph # (Auto) 1.1, [place] # (Auto) 0.9, Eos # (Auto) 0.0, Baso # (Auto) 0.0, ESR 18, Sodium 140, Potassium 4.3, Chloride 100, Carbon Dioxide 29, Anion Gap 15.3 H, BUN 14, Creatinine 0.60 L, Estimated Creat Clear 58, Estimated GFR 132, Est GFR ( Amer) 160, Glucose 140 H, Calcium 9.4, Magnesium 1.9, Total Bilirubin 0.5, AST 28, ALT 12, Alkaline Phosphatase 82, Troponin I < 0.01, C-Reactive Protein 5.6 H, NT-Pro-B Natriuret Pep 79.8, Total Protein 6.7, Albumin 4.0, Globulin 2.7, Albumin/Globulin Ratio 1.5, Lipase 92, HCV Ab RYAN w/Rflx PCR Qn Negative, HIV Ag/Ab Combo Qual Negative 10/22/24 17:39: Lactate 3.1 H 10/22/24 14:00 10/22/24 14:00 Orders (Tests/Meds): ED MEDICATIONS Discontinued Medications Generic Name Dose Route Start Last Admin Trade Name Trevor PRN Reason Stop Dose Admin Sodium Chloride 1,000 mls @ 999 mls/hr 10/22/24 14:08 10/22/24 14:22 Sod Chlor 0.9% 1000ml Bag IV 10/22/24 15:08 999 mls/hr .Q1H1M ONE Administration Sodium Chloride 10 ml 10/22/24 13:46 Sodium Chloride 0.9% 10ml Flush Syringe IV 11/21/24 13:45 NEEDED PRN Maintain IV Site ORDERS Category Date Time Status Ankle XR - Left minimum 3 Views [XR ankle LT min 3V] Exams 10/22/24 14:09 Completed Stat Chest XR -- portable [XR chest portable] Stat Exams 10/22/24 14:08 Completed BNP [NT Pro Brain Natriuretic Pep.] Stat Lab 10/22/24 14:00 Completed CRP [C-Reactive Protein] Stat Lab 10/22/24 14:00 Completed Complete Blood Count Auto Diff Stat Lab 10/22/24 14:00 Completed Comprehensive Metabolic Panel Stat Lab 10/22/24 14:00 Completed Erythrocyte Sedimentation Rate Stat Lab 10/22/24 14:00 Completed HIV Combo Stat Lab 10/22/24 14:00 Completed Hepatitis C Ab Qual. W/ RFX Stat Lab 10/22/24 14:00 Completed Lactic Acid Stat Lab 10/22/24 17:39 Completed Lipase Stat Lab 10/22/24 14:00 Completed Magnesium Stat Lab 10/22/24 14:00 Completed Trop I [Troponin I] Stat Lab 10/22/24 14:00 Completed Blood Culture Stat Micro 10/22/24 13:44 Ordered Medical Decision Narrative: patient is a 74-year-old male presenting to the emergency department for evaluation of sore on left ankle. Patient is hemodynamically stable and nontoxic-appearing upon arrival, afebrile. Differential diagnosis includes sepsis, wound, swelling, medication side effect, among others. Workup will be conducted with hematologic labs, specific imaging. Initial inventions include crystalloid bolus, analgesics. Initial workup reviewed by me hematologic labs are remarkable for nothing acute, white count was normal. Imaging informally interpreted by me and remarkable for nothing acute at this time. I had Dr. Sears look at these plain films as x-ray had not read them officially. Patient was getting anxious and wanted to go home. You are still awaiting formal imaging report. Discussed with patient's family that we would have him do wound care outpatient and antibiotics. Patient will be going home. He is stable for outpatient wound care. Critical Care Critical Care Time Critical Care Time: No
[2024-10-22 14:17] LABS: Alanine Aminotransferase 12 U/L (12-78); Albumin Level 4.0 g/dl (3.5-5.0); Albumin/Globulin Ratio 1.5 (1.1-1.8); Alkaline Phosphatase 82 U/L (38-126); Anion Gap 15.3 mEq/L (5-15); Aspartate Amino Transferase 28 U/L (17-59); Bilirubin,Total 0.5 mg/dl (0.2-1.3); Blood Urea Nitrogen 14 mg/dl (9-20); Calcium 9.4 mg/dl (8.4-10.2); Carbon Dioxide 29 mmol/L (22.0-30.0); Chloride 100 mmol/L (98-107); Creatinine Clearance Estimated 58 mL/min (50-200); Creatinine,Serum 0.60 mg/dl (0.66-1.25); Estimated Glomerular Filt Rate 132 ml/min (>60); GFR (African American) 160 ML/MIN (>60); Globulin 2.7 g/dL (1.3-3.2); Glucose 140 mg/dl (74-100); Potassium 4.3 mmoL/L (3.5-5.1); Sodium 140 mmol/L (136-145); Total Protein,Serum 6.7 g/dl (6.3-8.2)
--- NOTE | 2024-10-22 14:20 | ECG_ITS ---
APPROVED REPORT Exam: Resting ECG HR:93 bpm ECG Measurements Heart Rate 93 AXES VA 159 P 61 QRSd 85 QRS 49 QT 366 T 52 QTc 416 Conclusion SINUS RHYTHM NORMAL ECG UNCONFIRMED REPORT Electronically signed by : Carlos Alberto Sears, 10/22/2024 23:29:44
[2024-10-22] MEDS: 0.9 % SODIUM CHLORIDE 1000ML 1,000 ML 999 ML IV (14:22)
[2024-10-22 14:35] LABS: Lipase 92 U/L (23-300); Magnesium 1.9 mg/dl (1.6-2.3)
[2024-10-22 14:45] LABS: NT Pro Brain Natriuretic Pep. 79.8 pg/mL (0-125)
[2024-10-22 14:52] LABS: Troponin I < 0.01 ng/ml (0.00-0.034)
--- NOTE | 2024-10-22 14:55 | PC.NURSE ---
warm blanket given.
[2024-10-22 15:18] LABS: C-Reactive Protein 5.6 mg/L (0-4)
[2024-10-22 18:56] LABS: Hepatitis C Ab Qual. W/ RFX NEGATIVE (Negative)
== END 2024-10-22 17:35 | disposition home or self-care (01) ==
PROVIDERS: Nurse Practitioner; Student in an Organized Health Care Education/Training Program; Emergency Provider Student in an Organized Health Care Education/Training Program; PCP Internal Medicine
DX: L03.116 Cellulitis of left lower limb (principal); R60.0 Localized edema
CPT/HCPCS: 71045; 73610; 80053; 83605; 83690; 83735; 83880; 84484; 85025; 85651; 86140; 86803; 87040; 87389; 93005; 96360; 99284; J7030